=== PATIENT | female | born 1955 | race Caucasian/White ===

== ENCOUNTER 2017-01-03 12:31 | Emergency (ER) | payer BC ==
--- NOTE | 2017-01-03 14:48 | UC ---
Laceration HPI - HPI Summary HPI Summary: This is a 61 yo female with h/o BCA who presented after sustaining laceration to her forehead ~3 hrs ago. She was closing the trunk of her car and did not move her head. She didn't fall or LOC. No STONER or vision change. No n/v. - History Of Current Complaint Chief Complaint: UCLaceration Stated Complaint: HEAD LAC - Allergies/Home Medications Allergies/Adverse Reactions: Allergies Allergy/AdvReac Type Severity Reaction Status Date / Time Bacitracin [From Neosporin] Allergy Unknown Rash Verified 01/03/17 13:03 Neomycin [From Neosporin] Allergy Unknown Rash Verified 01/03/17 13:03 Polymyxin B [From Neosporin] Allergy Unknown Rash Verified 01/03/17 13:03 brazil nuts Allergy Itching Uncoded 01/03/17 13:03 PMH/Surg Hx/FS Hx/Imm Hx Previously Healthy: No - h/o BCA - Surgical History Surgical History: Yes Surgery Procedure, Year, and Place: left breast mastectomy 2011 - Family History Known Family History: Positive: None - Social History Alcohol Use: Occasionally Substance Use Type: None Smoking Status (MU): Never Smoked Tobacco Review of Systems Constitutional: Negative Skin: Other - laceration Eyes: Negative ENT: Negative Respiratory: Negative Cardiovascular: Negative Gastrointestinal: Negative Genitourinary: Negative Motor: Negative Neurovascular: Negative Musculoskeletal: Negative Neurological: Negative Psychological: Negative All Other Systems Reviewed And Are Negative: Yes Physical Exam Triage Information Reviewed: Yes Appearance: Well-Appearing Vital Signs: Initial Vital Signs Temp 98.3 F 01/03/17 12:58 Pulse 77 01/03/17 12:58 Resp 16 01/03/17 12:58 BP 100/51 01/03/17 12:58 Pulse Ox 98 01/03/17 12:58 Vital Signs Reviewed: Yes ENT: Positive: Normal ENT inspection Neck: Positive: Supple, Nontender Respiratory: Positive: Chest non-tender, Lungs clear. Negative: Crackles, Rhonchi, Wheezing Cardiovascular: Positive: RRR Skin: Positive: Other - horizontal laceration of the mid forehead. Measures ~ 1cm in length, inferior flap that is well adhered. Bleeding controlled Laceration Repair - Laceration Repair 1 Description: Linear : No Repair Necessary - steristrips placed Laceration Course/Dx - Course/Dx Course Of Treatment: This is a 61 yo female who sustained a laceration to her forehead. No LOC or concussive symptoms. Simple closure with steristrips. Recommend basic wound care. Leave steristrips in place until they fall on their on. - Differential Dx - Laceration/Wound Differental Diagnoses: Hematoma, Laceration Provider Diagnoses: 1. Laceration of forehead - closure with steristrips Discharge - Discharge Plan Condition: Stable Disposition: HOME Patient Education Materials: Laceration (ED) Referrals: Poncho Torres MD [Primary Care Provider] - If Needed Additional Instructions: Instructions: 1. Keep wound clean and dry 2. You can shower but do not submerge your head 3. Let steristrips fall off on their own
[2017-01-03 15:14] VITALS: BP 112/56
== END 2017-01-03 15:00 | disposition home or self-care (01) ==
LOC: UCEAST 12:31
DX: S01.81XA Laceration without foreign body of other part of head, initial encounter (principal); W20.8XXA Other cause of strike by thrown, projected or falling object, initial encounter; Y93.9 Activity, unspecified; Y92.9 Unspecified place or not applicable; Y99.9 Unspecified external cause status; Z91.018 Allergy to other foods; Z85.3 Personal history of malignant neoplasm of breast; Z88.3 Allergy status to other anti-infective agents; Z90.12 Acquired absence of left breast and nipple
CPT/HCPCS: 12001; 99211; G0463

== ENCOUNTER 2018-03-21 15:25 | Emergency (ER) | payer BC ==
--- OUTSIDE RECORDS SUMMARY | 2018-03-21 15:56 | XMS REPORT ---
:1955 External Reference #:[id number] Author Organization [facility] Address [address] [place] [address] Phone [phone] Care Team Providers Name Role Phone HCP given Primary Care Physician Unavailable Payers Type Date Identification Numbers Payment Provider Subscriber Health Maintenance Policy Number: Jose Calvo [facility] Organization (O) [id number] PayID: [id number] [address] [place] [address] Problems Date Description Provider Status Onset: 05/03/2003 Palpitations Poncho Torres M.D. Active Onset: 03/17/2004 Allergic rhinitis Nurse's Schedule Active Onset: 03/17/2004 Allergic rhinitis due to pollen Nurse's Schedule Active Onset: 03/17/2004 Allergic rhinitis due to animals Nurse's Schedule Active Onset: 11/21/2010 Anxiety state Jaylyn Altamirano MD Active Onset: 08/20/2011 Carcinoma in situ of breast Poncho Torres M.D. Active Onset: 07/03/2012 Personal history of primary malignant Jaylyn Altamirano MD Active neoplasm of breast Onset: 09/10/2012 Hypercalcemia Jaylyn Altamirano MD Active Onset: 12/23/2014 Insomnia Jaylyn Altamirano MD Active Onset: 12/23/2014 Disorder of thyroid gland Jaylyn Altamirano MD Active Onset: 12/23/2014 Thrombocytopenic disorder Jaylyn Altamirano MD Active Onset: 10/01/2015 Parasomnia, unspecified Poncho Torres M.D. Active Family History Date Family Member(s) Problem(s) Comments Father High Blood Pressure age 80 of pneumonia and newly dx lung cancer Mother Emotional Problems Mother High Blood Pressure Mother Mental Illness First Daughter Kathy First Daughter 1991 Second Daughter Glenys Second Daughter 1992 Third Daughter Oneyda Third Daughter 1997 Number of Siblings Siblings: 1 brother and 4 sisters First Brother Cancer Thyroid niece w/same age 30 First Sister Breast Cancer DCIS; Diagnosed in her late 40s; also Fallopian tube tumor Second Sister Emotional Problems anxiety Second Sister Mental Illness Third Sister Allergic Rhinitis Third Sister Asthma Onset: (age 53 Third Sister Colon Cancer metastatic; found on Years) screening. 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 Cigarette Use Does Not Smoke Cigarettes Cigarette Use Denies Cigarette Use ETOH Use Rare Alcohol Use Recreational Drug Use Denies Drug Use Smoking Patient has never smoked Daily Caffeine Drinks On Average 3-4 Caffeinated Beverages A Month Sun Exposure Moderate amount of sun exposure. Uses sunscreen Seat Belt/Car Seat Always uses a seat belt Currently Active The patient is currently sexually active Contraceptive Methods Past methods of control used include condoms Age 1st [place] First intercourse was at age 23 # Partners in a Lifetime The patient has had 3 sexual partners Allergies, Adverse Reactions, Alerts Date Description Reaction Status Severity Comments 02/04/2003 Neosporin active topical Medications Medication Date Status Form Strength Qnty SIG Indications Ordering Provider Alprazolam Active Tablets 0.5mg 10tabs 0.5 - 1 F41.9 Silcoff, 018 tab by Poncho, mouth M.D. three times a day as needed for panic attacks; may take a dose 30-60 min prior to MRI. Proventil HFA Active Aerosol 108(90Base) 1units every 6 B34.0 Silcoff, 018 mcg/Act hours as Poncho, needed M.D. 493.10 Benzonatate 07/20/2017 Active Capsules 100mg 30caps 1-2 capsules R05 Silcoff, three times a Poncho, day as needed, M.D. for nonproductive cough Buspirone HCL 11/18/2015 Active Tablets 7.5mg 180tabs take 1 tablet F41. Silcoff, by mouth two 9 Poncho, to three times M.D. a day for anxiety CBD 02/13/2015 Active Liq 1-2 gtt q d Unknown Calcium 10/04/2014 Active Tablets 600/80 1 qd Unknown W/Vitamin D 0 Tumeric 10/04/2014 Active 1 qd Unknown Vitamin D 10/04/2014 Active Tablets 2000U 1 qd Unknown Anastrozole 07/08/2014 Active Tablets 1mg to use through Unknown 05/[address] Wu Fluticasone 04/09/2014 Active Suspension 50mcg/ 1units 2 sprays into J30. Silcoff, Propionate Act each nostril 9 Poncho, every day as M.D. needed for nasal congestion/all ergies Advil 07/22/2012 Active Tablets 200mg prn Unknown Probiotic 07/02/2012 Active Capsules otc using 1 po Unknown daily Vitamin C 07/02/2012 Active Capsules 500mg OTC 1 po daily Unknown Multivitamins 07/02/2012 Active Tablets otc 1 po qd Unknown Fexofenadine 04/21/2012 Active Tablets 180mg 90tabs 1 by mouth 477. LIBRADO Altamirano every day as 9 Jaylyn VENEGAS needed for allergies Sulfacetamide 12/17/2016 - Hx Solution 10% 15ml 1-2 drops to H00. Silcoff, Sodium 12/24/2016 right eye 011 Poncho, every 3 hours M.D. while awake for up to 5-7 days; Sulfacetamide 07/07/2016 - Hx Solution 10% 10ml 1-2 drops each H11. Cira Sodium 07/14/2016 eye 4 times a 821 A. day 5-7 days Demarcus Rob PT For Low Back 06/19/2016 - Hx please M54. Brian, Pain 12/04/2016 evaluate and 5 erica Isaac M.D. modalities as needed, instruct in hep Buspirone HCL 10/01/2015 - Hx Tablets 5mg 90tabs 1 by mouth F41. Silcoff, 11/18/2015 twice a day 9 Poncho, for anxiety; M.D. increase to 1.5 pills 2x/day after 2wks Clonazepam 10/01/2015 - Hx Tablets 1mg 30tabs 1 by mouth G47. Skyeff, 07/16/2017 every night as 00 Poncho needed for M.D. sleep; do not take alprazolam while using this G47.50 Trazodone HCL 12/23/2014 - Hx Tablets 50mg 90tabs take 1/2 to 1 G47.00 Adarsh, 11/17/2015 tablet by Jaylyn VENEGAS mouth once daily 30 minutes preexpected bedtime as needed insomnia. give 8 hours for sleep Citalopram 12/15/2014 - Hx Tablets 20mg 90tabs 1 tab by mouth 300.00 Adarsh Hydrobromide 12/23/2014 every day Jaylyn VENEGAS Fit For Work 12/15/2014 - Hx free from Adarsh, 02/13/2015 communicable Jaylyn VENEGAS disease as per exam 12/15/14 Valacyclovir HCL 12/04/2013 - Hx Tablets 1gm 21tabs 1 tid for 7 053.9 Sopchak, 03/17/2014 days for ranjith Boss.O. Physical Therapy 04/23/2013 - Hx help benigno and Adarsh, For RT Sided 11/12/2013 treat. 2-3 Jaylyn VENEGAS Hip/Low Back xweek. if not Pain improving have her reseen for imaging. thanks. Flovent HFA 02/28/2013 - Hx Aerosol 110mcg 2units 2 puffs twice 493.90 Adarsh, 07/16/2017 /Act a day for Jaylyn VENEGAS lungs Skelaxin 11/27/2012 - Hx Tablets 800mg 90tabs 1 po tid prn 719.45 Adarsh, 11/12/2013 for your Jaylyn VENEGAS muscle spasm like pain. Flexeril 11/27/2012 - Hx Tablets 10mg 90tabs 1/2 to one tab 719.45 Adarsh, 11/12/2013 po in hs Jaylyn VENEGAS muscle spasm type pain. caution re sedation. to use instead of the skelaxin at night Tramadol HCL 11/27/2012 - Hx Tablets 50mg 120tabs 1 to 2 tab po 719.45 Adarsh, 11/12/2013 q 6h prn Jaylyn VENEGAS severe pain. Massage Therapy 07/03/2012 - Hx for neck pain 719.41 Adarsh, 09/21/2012 once a week Jaylyn VENEGAS for 12 weeks Tamoxifen 06/28/2012 - Hx Tablets 20mg 1 tablet po Unknown Citrate 07/24/2014 qhs Optivar 04/21/2012 - Hx Solution 0.05% 6ml 1 drop twice a 372.14 Adarsh , 12/04/2016 day as needed Jaylyn VENEGAS to affected eye(s); doses should be spaced by at least 6 hours Fluticasone 04/21/2012 - Hx Basin 50mcg/ 54gm 2 sprays each 477.9 Adarsh, Propionate 04/09/2014 Basin nostril once a Jaylyn VENEGAS day Cephalexin 12/06/2011 - Hx Tablets 500mg 1 tab po qid 682.8 Adarsh, 12/20/2011 until december Jaylyn VENEGAS 5th. Cephalexin 12/04/2011 - Hx Tablets 500mg 20tabs 1 tab po bid x 682.8 Adarsh, 12/06/2011 10 days to use Jaylyn VENEGAS as needed. Fluconazole 12/04/2011 - Hx Tablets 150mg 1tabs 1 tab x 1 for 682.8 Adarsh, 04/18/2012 your possible Jaylyn VENEGAS yeast infection Hydrocodone/Acet 10/19/2011 - Hx Tablets 5-500m as directed Unknown aminophen 12/04/2011 g Ibuprofen 10/19/2011 - Hx Tablets 200mg otc taking 2 tab Unknown 12/04/2011 to 4 tab with a snack for your pain. Skelaxin 10/08/2011 - Hx Tablets 800mg 60tabs 1 po tid prn Adarsh, 12/04/2011 for your Jaylyn VENEGAS muscle spasm like pain. Fluoxetine HCL 08/23/2011 - Hx Capsules 20mg 90caps 1 po qam. 300.00 Adarsh, 04/17/2012 bcall if Jaylyn VENEGAS intolerable side effects. can use w/ the alprazolam Alprazolam 08/20/2011 - Hx Tablets 0.5mg 60tabs 0.5 - 1 tab by F41.9 Anetak, 07/16/2017 mouth three Gera, times a day as D.O. needed panic attacks. Physical Therapy 07/02/2011 - Hx for rt Adarsh, 04/18/2012 shoulder pain Jaylyn VENEGAS 2-3x/week. up to 6 weeks Physical Therapy 05/17/2011 - Hx 6Weeks for left 726.19 Adarsh, 06/04/2011 shoudle pain Jaylyn VENEGAS and loss of motion. probable rcs. 2- 3x/week Physical Therpay 05/17/2011 - Hx 12Weeks for lt 726.19 Adarsh, 11/12/2013 shoulder pain Jaylyn VENEGAS 2-3x/week. Flovent HFA 04/30/2011 - Hx Aerosol 110mcg 2units 2 puffs bid 493.90 Silcoff, 12/04/2011 /Act for lungs Demarcus Isaac Loratadine 02/27/2011 - Hx Tablets 10mg 90tabs one tba po 477.9 Adarsh, Allergy Relief 04/21/2012 Dispers daily ervin Jaylyn VENEGAS allergy season Fluticasone 02/27/2011 - Hx Basin 50mcg/ 1units 2 sprays each 477.9 Adarsh, Propionate 12/04/2011 Basin nostril once A Jaylyn VEENGAS day. rinse mouth post. Benadryl 02/27/2011 - Hx Capsules 25mg 30caps 1 Tab PO In hs Adarsh, 12/04/2011 For Refractory Jaylyn VENEGAS Allergy Symptoms Bupropion HCL ER 11/21/2010 - Hx Tablets ER 150mg 60tabs add one tab po 300.00 Adarsh, 01/25/2011 12HR in am to your Jaylyn VENEGAS celexa. if not helping in 2 weeks let me know and can double dose Levofloxacin 11/21/2010 - Hx Solution 0.5% 10cc 1-2 drops each 372.00 Adarsh, 12/04/2011 eye every Jaylyn VENEGAS 4hours while awake until 24 hours after 100% resolved or up to 7 days Ciprofloxacin 11/21/2010 - Hx Solution 0.3% 10cc 1-2 drops in 372.00 Adarsh, HCL 11/28/2010 affected eye q Jaylyn VENEGAS 2h first day while awake and then q4h while awake x 24 hours post resolution of symptoms max 7 d Prednisone 09/18/2010 - Hx Tablets 20mg 10tabs One Tablet 784.49 Silcofreda, 01/24/2011 Twice Daily Poncho For Five Days Demarcus Benzonatate 09/18/2010 - Hx Capsules 200mg 30caps 1 po tid, prn 466.0 Silcoff, 12/04/2011 Demarcus Isaac Physical Therapy 07/20/2010 - Hx 6Weeks for rt hip 719.45 Adarsh, 04/20/2012 pain.. help Jaylyn VENEGAS evaluate and treat. 2-3 x/ wk. Proventil HFA 02/09/2010 - Hx Aerosol 108(90 1units use one to 2 477.9 Adarsh, 07/16/2017 Base) inhalation as Jaylyn VENEGAS mcg/ac needed wheeze. if need to use > 2x/week or in middle of nite. see . 493.10 Citalopram 12/20/2009 - Hx Tablets 20mg 90tabs will try 2 300.00 Adarsh Hydrobromide 01/24/2011 dose qd as Jaylyn VENEGAS ful dose causing sexual s/e Melony Is Free Of 12/20/2009 - Hx continue V74.1 Adarsh Communicable 04/20/2012 working. Jaylyn VENEGAS Disease And Is Fit To Ibuprofen 06/02/2009 - Hx Tablets 200mg 100tabs taking 2 tab 719.41 Adarsh, 09/26/2009 to 4 tab with Jaylyn VENEGAS a snack for your pain. can use with 1 grm tylenol q 6h.max is 2400mg/d PT For Left 05/30/2009 - Hx evaluate and 719.41 Silcoff, Shoulder Pain 04/20/2012 Poncho maldonado modalities M.D. prn, instruct in hep PT For Chronic 01/28/2009 - Hx please 719.45 Silcoff, Right Hip Pain 07/04/2009 evaluate and erica Isaac M.D. instruct in hep Bactroban 12/13/2008 - Hx Ointment 2% 22gm apply to 709.9 Brian, 12/27/2008 affected area kendall Isaac abdomen bid M.DKatie until clear In Good General 12/10/2008 - Hx Is free of Adarsh [facility] 04/20/2012 commicable Jaylyn VENEGAS disease In Good Feneral 12/09/2008 - Hx and free of [facility] 12/10/2008 communicable Jaylyn VENEGAS disease. Sodium 08/31/2008 - Hx Solution 10% 10cc 1-2 gtts ou 372.00 Jovani Sulfacetamide 09/05/2008 q3h while Radha VENEGAS awake for 5 days Delfina 07/01/2008 - Hx Tablets 180mg 90tabs 1 tablet daily 477.9 Silcoff, 04/20/2012 Demarcus Isaac Physical Therapy 07/01/2008 - Hx 6Weeks for neck pain 723.1 Adarsh, 04/20/2012 2to 3x/week Jaylyn VENEGAS Massage Therapy 07/01/2008 - Hx 3Mo once a week as 723.1 Adarsh 04/20/2012 a mode for Jaylyn VENEGAS pain reduction Carpal Tunnel 07/01/2008 - Hx x 1 pr. wear 782.0 Adarsh, Splint 04/20/2012 at nite and Jaylyn VENEGAS see if reduce your hand tingling Physical Therapy 04/08/2008 - Hx 6Weeks please help 719.46 Adarsh, 07/04/2009 evaluate her Jaylyn VENEGAS lt knee pain 2-3x week Massage Therapy 04/08/2008 - Hx 3Mo once A week as 723.1 Adarsh, 04/20/2012 A mode for Jaylyn VENEGAS pain reduction Amoxicillin 02/27/2008 - Hx Tablets 500mg 30tabs 1 po tid for 465.9 Silcoff, 03/12/2008 10 days Demarcus Isaac PT For Right Hip 08/06/2007 - Hx evaluate and 726.5 Silcoff, Trochanteric 02/27/2008 treatPoncho Bursitis willian Tracy prn, instruct in hep Prednisone 02/11/2007 - Hx Tablets 20mg 10tabs One Tablet 477.9 Howson, 02/16/2007 Twice Daily Radha VENEGAS For Five Days Fexofenadine 07/15/2006 - Hx Tablets 180mg 90tabs 1 po qd prn 477.9 Silcoff, 03/18/2008 for allergies Demarcus Isaac Augmentin 01/18/2006 - Hx Tablets 875mg 20tabs 1 po bid 682.2 Silcoff, 01/28/2006 Demarcus Isaac 998.59 Biaxin 09/17/2005 - Hx Tablets 500mg 20tabs 1 PO bid For 486 Silcoff, 09/27/2005 10 Days Demarcus Isaac Zyrtec 07/16/2005 - Hx Tablets 10mg 90tabs 1 tablet in Breiman, 07/15/2006 the evening Kerline, N.P. Amoxicillin 05/17/2005 - Hx Capsules 500mg 30caps 1 tablet Breiman, 05/22/2005 every 8 Kerline, hours for N.P. 10 days Erythromycin 05/15/2005 - Hx apply / 374.8 Breiman, 05/22/2005 inch of 9 Kerline, ointment in N.P. the lower lid of the affected eye 2 times A day for 5 days Flonase 12/20/2004 - Hx Basin 50mcg/Basin 1units 2 sprays 477.9 Adarsh, 02/27/2011 each nostril Jaylyn VENEGAS once A day. rinse mouth post. Clarinex 10 MG 08/22/2004 - Hx Tablets 10mg 30tabs 1 po qd Breiman, 07/16/2005 Kerline, N.P. Eye Exam 03/31/2004 - Hx we recommend Breiman, 02/27/2008 an eye exam Kerline, at this N.P. time for further evaluation of visual changes Erythromycin 05/11/2003 - Hx Ointment Opthalamic apply 06/20 Breiman, 10/21/2003 Oint inch to Kerline, affected eye N.P. twice a day for 5 days Taco-Tab 05/11/2003 - Hx Tablets 333mg take 1 Breiman, 10/21/2003 tablet 3 Kerline, times a day N.P. with food for 10 days Clarinex 03/26/2003 - Hx Tablets 5mg 90tabs 1 qd for Breiman, 10/31/2004 allergies Kerline, N.P. Flovent 03/26/2003 - Hx Aerosol 110mcg/Inhal 3units 2 puffs bid 493.9 Adarsh, 04/30/2011 ation for lungs 0 Jaylyn VENEGAS Albuterol Mdi 03/26/2003 - Hx Aerosol 90mcg/Dose 1units 2 puffs q 4 493.9 Breiman, 07/25/2010 hrs prn for 0 Kerline, SOB N.P. Xyzal - Hx Tablets 5mg 1 po qd 477.9 Unknown 07/01/2008 Glucosamine/Cho - Hx Capsules Unknown ndroitin 12/04/2011 Medications Administered in Office Medication Date Status Form Strength Qnty SIG Indications Ordering Provider TB Intradermal Administered Injection Valeri Test 018 [place], P.A. TB Intradermal Administered Injection Hang Test 017 Gera, D.O. TB Intradermal Administered Injection Nurse's Test 017 Schedule TB Intradermal Administered Injection Nurse's Test 015 Schedule TB Intradermal Administered Injection Nurse's Test 014 Schedule TB Intradermal Administered Injection Nurse's Test 013 Schedule TB Intradermal Administered Injection Nurse's Test 011 Schedule TB Intradermal Administered Injection Adarsh, Test 010 Jaylyn VENEGAS TB Intradermal Administered Injection Nurse's Test 009 Schedule TB Intradermal Administered Injection Nurse's Test 008 Schedule TB Intradermal Administered Injection Silcoff, Test 007 Demarcus Isaac TB Intradermal Administered Injection Silcoff, Test 006 Demarcus Isaac TB Intradermal Administered Injection Nurse's Test 006 Schedule TB Intradermal Administered Injection Silcoff, Test 005 Demarcus Isaac TB Intradermal Administered Injection Nurse's Test 005 Schedule TB Intradermal Administered Injection Silcoff, Test 004 Demarcus Isaac TB Intradermal Administered Injection Nurse's Test 004 Schedule TB Intradermal Administered Injection Silcoff, Test 003 Demarcus Isaac Immunizations CPT Code Status Date Vaccine Lot # [id number] Given 03/07/2018 Influenza,Unspecified 44661 Given 12/05/2016 Td Immunization [id number] 50542 Given 06/19/2016 Influenza Virus Vaccine, Quadrivalent, Split, [id number] Preservative Free 97158 Given 02/14/2015 Influenza Virus Vaccine, Quadrivalent, Split, [id number] Preservative Free 71156 Given 02/28/2013 Flu, Split Virus 3Yrs [id number] 41835 Given 04/21/2012 Flu, Split Virus 3Yrs [id number] 22970 Given 03/30/2011 Flu, Split Virus 3Yrs [id number] 49110 Given 04/12/2010 Flu, Split Virus 3Yrs 56780 Given 05/26/2009 Flu, Split Virus 3Yrs [id number] 79101 Given 03/18/2008 Flu, Split Virus 3Yrs 22354 Given 04/11/2007 Flu, Split Virus 3Yrs [id number] 40509 Given 03/12/2007 Adacel or Boostrix, TDaP [id number] 12334 Given 05/17/2006 Flu, Split Virus 3Yrs [id number] 04926 Given 04/19/2005 Flu, Split Virus 3Yrs 96562 Given 03/17/2004 Flu, Split Virus 3Yrs 93153 Given 04/03/2003 Flu, Split Virus 3Yrs 63019 Given 08/18/1999 Td Immunization Vital Signs Date Vital Result Comment 03/19/2018 BP Systolic 94 mmHg BP Diastolic 60 mmHg Weight 142.00 lb 11/29/2017 BP Systolic 90 mmHg BP Diastolic 60 mmHg Height 65 inches 5'5" Weight 136.00 lb BMI (Body Mass Index) 22.6 kg/m2 11/14/2017 BP Systolic 94 mmHg BP Diastolic 60 mmHg Weight 135.00 lb 10/14/2017 BP Systolic 90 mmHg BP Diastolic 60 mmHg Heart Rate 88 /min O2 % BldC Oximetry 98 % Body Temperature 97.8 F Weight 133.00 lb 07/20/2017 BP Systolic 98 mmHg BP Diastolic 68 mmHg Heart Rate 70 /min O2 % BldC Oximetry 95 % Body Temperature 98.1 F 07/17/2017 BP Systolic 92 mmHg BP Diastolic 60 mmHg Body Temperature 98.6 F Height 65.25 inches 5'5.25" Weight 130.00 lb BMI (Body Mass Index) 21.5 kg/m2 12/17/2016 BP Systolic 96 mmHg BP Diastolic 64 mmHg 12/05/2016 BP Systolic 98 mmHg BP Diastolic 60 mmHg Weight 140.00 lb 08/31/2016 BP Systolic 108 mmHg BP Diastolic 64 mmHg Body Temperature 97.7 F 07/07/2016 BP Systolic 118 mmHg BP Diastolic 70 mmHg 06/19/2016 BP Systolic 110 mmHg BP Diastolic 75 mmHg Height 65.25 inches 5'5.25" Weight 148.00 lb BMI (Body Mass Index) 24.4 kg/m2 11/18/2015 BP Systolic 118 mmHg BP Diastolic 62 mmHg 10/01/2015 BP Systolic 118 mmHg BP Diastolic 70 mmHg Height 65.25 inches 5'5.25" Weight 144.00 lb BMI (Body Mass Index) 23.8 kg/m2 02/14/2015 BP Systolic 116 mmHg BP Diastolic 68 mmHg Weight 148.00 lb 12/23/2014 BP Systolic 116 mmHg BP Diastolic 84 mmHg 12/15/2014 BP Systolic 102 mmHg BP Diastolic 65 mmHg Height 65.25 inches 5'5.25" Weight 147.00 lb BMI (Body Mass Index) 24.3 kg/m2 10/05/2014 BP Systolic 98 mmHg BP Diastolic 60 mmHg Height 65 inches 5'5" Weight 150.00 lb BMI (Body Mass Index) 25.0 kg/m2 07/24/2014 BP Systolic 112 mmHg BP Diastolic 68 mmHg Weight 153.00 lb 03/18/2014 BP Systolic 114 mmHg BP Diastolic 82 mmHg Weight 155.00 lb shoes on 12/04/2013 BP Systolic 110 mmHg BP Diastolic 68 mmHg Body Temperature 98.2 F Weight 147.00 lb 11/12/2013 BP Systolic 90 mmHg BP Diastolic 62 mmHg Height 65 inches 5'5" Weight 152.00 lb BMI (Body Mass Index) 25.3 kg/m2 05/08/2013 BP Systolic 104 mmHg BP Diastolic 72 mmHg 04/28/2013 BP Systolic 98 mmHg BP Diastolic 62 mmHg Height 65 inches 5'5" Weight 152.00 lb BMI (Body Mass Index) 25.3 kg/m2 04/23/2013 BP Systolic 100 mmHg BP Diastolic 68 mmHg Body Temperature 98.1 F Weight 141.00 lb 02/28/2013 BP Systolic 108 mmHg BP Diastolic 63 mmHg Heart Rate 76 /min O2 % BldC Oximetry 97 % Body Temperature 98.2 F Weight 153.00 lb 11/27/2012 BP Systolic 98 mmHg BP Diastolic 58 mmHg Height 65.25 inches 5'5.25" Weight 152.00 lb BMI (Body Mass Index) 25.1 kg/m2 10/16/2012 BP Systolic 100 mmHg BP Diastolic 64 mmHg Body Temperature 97.9 F Weight 149.00 lb 09/10/2012 BP Systolic 88 mmHg BP Diastolic 50 mmHg Body Temperature 97.7 F 09/02/2012 BP Systolic 90 mmHg BP Diastolic 60 mmHg Body Temperature 97.9 F 08/27/2012 BP Systolic 100 mmHg BP Diastolic 62 mmHg Height 65 inches 5'5" Weight 146.00 lb BMI (Body Mass Index) 24.3 kg/m2 07/23/2012 BP Systolic 100 mmHg BP Diastolic 60 mmHg Weight 145.00 lb 07/03/2012 BP Systolic 104 mmHg was down to 136 pounds. BP Diastolic 62 mmHg was down to 136 pounds. Body Temperature 97.7 F Height 65 inches 5'5" Weight 146.00 lb BMI (Body Mass Index) 24.3 kg/m2 04/21/2012 BP Systolic 96 mmHg BP Diastolic 66 mmHg Body Temperature 98.3 F Weight 142.00 lb Last Menstrual Period 0 12/26/2011 BP Systolic 100 mmHg BP Diastolic 50 mmHg Heart Rate 75 /min 12/06/2011 BP Systolic 90 mmHg BP Diastolic 62 mmHg Weight 140.00 lb Last Menstrual Period 0 12/04/2011 BP Systolic 98 mmHg BP Diastolic 60 mmHg Body Temperature 98.1 F Weight 140.00 lb 11/01/2011 BP Systolic 90 mmHg BP Diastolic 56 mmHg Body Temperature 98.1 F Weight 137.00 lb w/shoes 09/06/2011 BP Systolic 100 mmHg BP Diastolic 68 mmHg Weight 138.00 lb Last Menstrual Period 0 08/23/2011 BP Systolic 136 mmHg BP Diastolic 80 mmHg Height 65.25 inches 5'5.25" Weight 141.00 lb BMI (Body Mass Index) 23.3 kg/m2 Last Menstrual Period 0 08/20/2011 BP Systolic 120 mmHg BP Diastolic 64 mmHg 05/17/2011 BP Systolic 100 mmHg BP Diastolic 60 mmHg Height 65.25 inches 5'5.25" Weight 142.00 lb BMI (Body Mass Index) 23.4 kg/m2 01/25/2011 BP Systolic 112 mmHg BP Diastolic 70 mmHg Weight 147.00 lb 11/21/2010 BP Systolic 104 mmHg BP Diastolic 66 mmHg Body Temperature 98.1 F Weight 153.00 lb Last Menstrual Period 0 11/02/2010 BP Systolic 103 mmHg BP Diastolic 52 mmHg Heart Rate 69 /min Height 65.25 inches 5'5.25" Weight 151.00 lb BMI (Body Mass Index) 24.9 kg/m2 Last Menstrual Period 0 09/18/2010 BP Systolic 105 mmHg BP Diastolic 61 mmHg Heart Rate 64 /min Body Temperature 98.1 F Weight 151.00 lb Last Menstrual Period 0 07/20/2010 BP Systolic 98 mmHg BP Diastolic 64 mmHg Height 65.50 inches 5'5.50" Weight 153.00 lb BMI (Body Mass Index) 25.1 kg/m2 02/09/2010 BP Systolic 102 mmHg BP Diastolic 66 mmHg Weight 148.00 lb 12/20/2009 BP Systolic 126 mmHg BP Diastolic 70 mmHg Height 65.25 inches 5'5.25" Weight 149.50 lb BMI (Body Mass Index) 24.7 kg/m2 11/23/2009 BP Systolic 118 mmHg BP Diastolic 55 mmHg Heart Rate 64 /min Weight 150.00 lb Last Menstrual Period 0 09/26/2009 BP Systolic 100 mmHg BP Diastolic 70 mmHg Weight 150.00 lb Last Menstrual Period 0 07/14/2009 BP Systolic 102 mmHg BP Diastolic 60 mmHg Height 66 inches 5'6" Weight 145.50 lb BMI (Body Mass Index) 23.5 kg/m2 Last Menstrual Period [id number] 06/02/2009 BP Systolic 100 mmHg BP Diastolic 66 mmHg Weight 145.00 lb Last Menstrual Period 0 01/28/2009 BP Systolic 100 mmHg BP Diastolic 70 mmHg Weight 155.00 lb 01/28/2009 BP Systolic 100 mmHg BP Diastolic 70 mmHg Weight 155.00 lb 12/13/2008 BP Systolic 112 mmHg BP Diastolic 70 mmHg Body Temperature 98.3 F 10/07/2008 BP Systolic 98 mmHg BP Diastolic 64 mmHg Weight 167.00 lb 08/31/2008 BP Systolic 96 mmHg BP Diastolic 64 mmHg Body Temperature 98.1 F Weight 163.00 lb 07/01/2008 BP Systolic 92 mmHg BP Diastolic 62 mmHg Weight 165.00 lb 04/27/2008 BP Systolic 98 mmHg BP Diastolic 60 mmHg Height 65.5 inches 5'5.50" Weight 161.00 lb BMI (Body Mass Index) 26.4 kg/m2 04/08/2008 BP Systolic 94 mmHg BP Diastolic 60 mmHg Height 65.5 inches 5'5.50" Weight 164.00 lb BMI (Body Mass Index) 26.9 kg/m2 03/18/2008 BP Systolic 98 mmHg BP Diastolic 64 mmHg Height 65.5 inches 5'5.50" Weight 165.00 lb BMI (Body Mass Index) 27.0 kg/m2 Last Menstrual Period [id number] 02/27/2008 BP Systolic 100 mmHg BP Diastolic 60 mmHg Body Temperature 98.0 F Height 65.5 inches 5'5.50" Weight 165.00 lb BMI (Body Mass Index) 27.0 kg/m2 Last Menstrual Period 0 11/26/2007 BP Systolic 104 mmHg BP Diastolic 60 mmHg Height 65.5 inches 5'5.50" Weight 160.00 lb BMI (Body Mass Index) 26.2 kg/m2 08/06/2007 BP Systolic 100 mmHg BP Diastolic 54 mmHg Height 65.5 inches 5'5.50" Weight 158.50 lb BMI (Body Mass Index) 26.0 kg/m2 03/12/2007 BP Systolic 114 mmHg BP Diastolic 70 mmHg Height 65.5 inches 5'5.50" Weight 159.00 lb BMI (Body Mass Index) 26.1 kg/m2 Last Menstrual Period [id number] 02/11/2007 BP Systolic 90 mmHg BP Diastolic 60 mmHg Body Temperature 98.1 F Height 65.5 inches 5'5.50" Weight 156.00 lb BMI (Body Mass Index) 25.6 kg/m2 Last Menstrual Period 0 01/13/2007 BP Systolic 120 mmHg BP Diastolic 62 mmHg Height 65.5 inches 5'5.50" Weight 160.00 lb BMI (Body Mass Index) 26.2 kg/m2 08/05/2006 BP Systolic 100 mmHg BP Diastolic 76 mmHg BP Systolic Recheck 112 mmHg R arm sitting; 110/80 standing BP Diastolic Recheck 68 mmHg R arm sitting; 110/80 standing Heart Rate 76 /min reg Body Temperature 98.0 F Height 65.5 inches 5'5.50" Weight 156.00 lb BMI (Body Mass Index) 25.6 kg/m2 Last Menstrual Period 0 03/07/2006 BP Systolic 98 mmHg BP Diastolic 60 mmHg Height 65.5 inches 5'5.50" Weight 154.00 lb BMI (Body Mass Index) 25.2 kg/m2 01/18/2006 BP Systolic 100 mmHg BP Diastolic 65 mmHg Body Temperature 97.6 F Height 65.5 inches 5'5.50" Weight 154.00 lb BMI (Body Mass Index) 25.2 kg/m2 01/14/2006 BP Systolic 96 mmHg BP Diastolic 60 mmHg Body Temperature 98.0 F Height 65.5 inches 5'5.50" Weight 152.00 lb BMI (Body Mass Index) 24.9 kg/m2 09/17/2005 BP Systolic 106 mmHg BP Diastolic 70 mmHg Heart Rate 76 /min reg Respiratory Rate 12 /min not laboured Body Temperature 97.2 F Height 65.25 inches 5'5.25" Weight 163.00 lb BMI (Body Mass Index) 26.9 kg/m2 05/17/2005 Body Temperature 97.8 F Height 65.25 inches 5'5.25" 05/15/2005 Body Temperature 97.8 F Height 65.25 inches 5'5.25" 04/19/2005 BP Systolic 102 mmHg BP Diastolic 68 mmHg Height 65.25 inches 5'5.25" Weight 165.00 lb BMI (Body Mass Index) 27.2 kg/m2 02/20/2005 BP Systolic 100 mmHg BP Diastolic 70 mmHg Body Temperature 98.1 F Height 65.25 inches 5'5.25" Weight 166.00 lb BMI (Body Mass Index) 27.4 kg/m2 01/11/2005 BP Systolic 126 mmHg BP Diastolic 70 mmHg Height 65.25 inches 5'5.25" Weight 164.00 lb BMI (Body Mass Index) 27.1 kg/m2 10/31/2004 BP Systolic 100 mmHg BP Diastolic 80 mmHg Height 65.25 inches 5'5.25" Weight 160.00 lb BMI (Body Mass Index) 26.4 kg/m2 Last Menstrual Period 0 08/22/2004 BP Systolic 104 mmHg BP Diastolic 70 mmHg Height 65.25 inches 5'5.25" Weight 162.00 lb BMI (Body Mass Index) 26.7 kg/m2 Last Menstrual Period [id number] 03/31/2004 BP Systolic 100 mmHg BP Diastolic 58 mmHg Height 65 inches 5'5" Weight 157.00 lb BMI (Body Mass Index) 26.1 kg/m2 Last Menstrual Period [id number] 10/21/2003 BP Systolic 110 mmHg R Arm BP Diastolic 60 mmHg R Arm Body Temperature 96.0 F PO Weight 153.00 lb 10/15/2003 BP Systolic 102 mmHg BP Diastolic 70 mmHg Weight 154.00 lb 04/16/2003 BP Systolic 100 mmHg BP Diastolic 60 mmHg 03/26/2003 BP Systolic 110 mmHg BP Diastolic 65 mmHg Height 65 inches 5'5" Weight 155.00 lb BMI (Body Mass Index) 25.8 kg/m2 Results Test Date Test Result H/L Range Note Laboratory test 11/29/2017 TSH (Thyroid Stim 2.09 mcIU/mL 0.34-5.60 finding Horm) Lipid Profile 11/29/2017 Triglycerides 129 mg/dL 1 (Trig/Chol/HDL) Cholesterol 210 mg/dL 2 HDL Cholesterol 82.6 mg/dL 3 LDL Cholesterol 102 mg/dL 4 Comp Metabolic Panel 11/29/2017 Sodium 141 mmol/L 135-145 Potassium 4.9 mmol/L 3.5-5.0 Chloride 103 mmol/L 101-111 Co2 Carbon Dioxide 32 mmol/L 22-32 Anion Gap 6 mmol/L 2-11 Glucose 90 mg/dL 70-100 Blood Urea Nitrogen 17 mg/dL 6-24 Creatinine 0.86 mg/dL 0.51-0.95 BUN/Creatinine Ratio 19.8 8-20 Calcium 10.3 mg/dL 8.6-10.3 Total Protein 6.5 g/dL 6.4-8.9 Albumin 4.2 g/dL 3.2-5.2 Globulin 2.3 g/dL 2-4 Albumin/Globulin Ratio 1.8 1-3 Total Bilirubin 0.40 mg/dL 0.2-1.0 Alkaline Phosphatase 95 U/L 34-104 Alt 15 U/L 7-52 Ast 21 U/L 13-39 Egfr Non- 67.5 >60 Egfr 86.9 >60 5 CBC Auto Diff 11/29/2017 White Blood Count 6.2 10^3/uL 3.5-10.8 Red Blood Count 4.52 10^6/uL 4.00-5.40 Hemoglobin 14.6 g/dL 12.0-16.0 Hematocrit 44 % 35-47 Mean Corpuscular Volume 97 fL 80-97 Mean Corpuscular Hemoglobin 32 pg High 27-31 Mean Corpuscular HGB Conc 33 g/dL 31-36 Red Cell Distribution Width 13 % 10.5-15 Platelet Count 164 10^3/uL 150-450 Mean Platelet Volume 9.5 um3 7.4-10.4 Abs Neutrophils 3.4 10^3/uL 1.5-7.7 Abs Lymphocytes 2.1 10^3/uL 1.0-4.8 Abs Monocytes 0.4 10^3/uL 0-0.8 Abs Eosinophils 0.2 10^3/uL 0-0.6 Abs Basophils 0 10^3/uL 0-0.2 Abs Nucleated RBC 0 10^3/uL Granulocyte % 55.2 % 38-83 Lymphocyte % 34.0 % 25-47 Monocyte % 7.2 % High 0-7 Eosinophil % 3.1 % 0-6 Basophil % 0.5 % 0-2 Nucleated Red Blood Cells % 0.1 Laboratory test 09/13/2017 Vitamin D Total 62.3 ng/mL High 20-50 finding 25(Oh) Laboratory test 12/28/2016 Surgical Pathology SEE RESULT BELOW 6, 7 finding CBC Auto Diff 01/26/2016 White Blood Count 5.2 10^3/uL 3.5-10.8 Red Blood Count 4.47 10^6/uL 4.0-5.4 Hemoglobin 14.0 g/dL 12.0-16.0 Hematocrit 42 % 35-47 Mean Corpuscular Volume 95 fL 80-97 Mean Corpuscular Hemoglobin 31 pg 27-31 Mean Corpuscular HGB Conc 33 g/dL 31-36 Red Cell Distribution Width 13 % 10.5-15 Platelet Count 162 10^3/uL 150-450 Mean Platelet Volume 10 um3 7.4-10.4 Abs Neutrophils 2.4 10^3/uL 1.5-7.7 Abs Lymphocytes 2.1 10^3/uL 1.0-4.8 Abs Monocytes 0.4 10^3/uL 0-0.8 Abs Eosinophils 0.2 10^3/uL 0-0.6 Abs Basophils 0 10^3/uL 0-0.2 Abs Nucleated RBC 0 10^3/uL Granulocyte % 46.6 % 38-83 Lymphocyte % 41.2 % 25-47 Monocyte % 7.5 % 1-9 Eosinophil % 3.9 % 0-6 Basophil % 0.8 % 0-2 Nucleated Red Blood Cells % 0.1 Comp Metabolic Panel 01/26/2016 Sodium 138 mmol/L 133-145 Potassium 4.2 mmol/L 3.5-5.0 Chloride 103 mmol/L 101-111 Co2 Carbon Dioxide 30 mmol/L 22-32 Anion Gap 5 mmol/L 2-11 Glucose 122 mg/dL High 70-100 Blood Urea Nitrogen 16 mg/dL 6-24 Creatinine 0.89 mg/dL 0.51-0.95 BUN/Creatinine Ratio 18.0 8-20 Calcium 9.6 mg/dL 8.6-10.3 Total Protein 6.6 g/dL 6.4-8.9 Albumin 3.9 g/dL 3.2-5.2 Globulin 2.7 g/dL 2-4 Albumin/Globulin Ratio 1.4 1-3 Total Bilirubin 0.40 mg/dL 0.2-1.0 Alkaline Phosphatase 90 U/L 34-104 Alt 12 U/L 7-52 Ast 20 U/L 13-39 Egfr Non- 65.1 >60 Egfr 83.8 >60 8 Laboratory test finding 01/26/2016 Vitamin D Total 25(Oh) 59.7 ng/mL High 30-50 Lipid Profile 11/29/2015 Triglycerides 75 mg/dL 9 (Trig/Chol/HDL) Cholesterol 181 mg/dL 10 HDL Cholesterol 73.1 mg/dL 11 LDL Cholesterol 93 mg/dL 12 Quantiferon Gold TB 11/29/2015 M tuberculosis by Quantiferon Negative Negative 13 TB Ag minus Nil Result 0.09 IU/mL TB Mitogen minus Nil Result 13.68 IU/mL TB Nil Result 0.07 IU/mL 14 Laboratory test finding 07/27/2015 Vagina Biopsy See Note 15 Anaerobic Culture W/ GR Stain 07/27/2015 Gram Stain; Anaerobic See Note 16 Specimen Anaerobic Culture See Note 17 Routine Culture W/ Gram Stain 07/27/2015 Gram Stain See Note 18 Aerobic Culture See Note 19 Laboratory test finding 01/04/2015 Vitamin B12 557 pg/mL 193-986 20 Folic Acid 21.9 ng/mL High 3.1-17.5 21 Vitamin B1 (Thiamine),WB 165.2 nmol/L 66.5-200.0 22 CBC Auto Diff 12/16/2014 White Blood Count 4.8 10^3/uL 4.8-10.8 Red Blood Count 4.32 10^6/uL 4.0-5.4 Hemoglobin 13.8 g/dL 12.0-16.0 Hematocrit 42 % 35-47 Mean Corpuscular Volume 97 fL 80-97 Mean Corpuscular Hemoglobin 32 pg High 27-31 Mean Corpuscular HGB Conc 33 g/dL 31-36 Red Cell Distribution Width 13 % 10.5-15 Platelet Count 145 10^3/uL Low 150-450 Mean Platelet Volume 10 um3 7.4-10.4 Abs Neutrophils 2.1 10^3/uL 1.5-7.7 Abs Lymphocytes 2.0 10^3/uL 1.0-4.8 Abs Monocytes 0.5 10^3/uL 0-0.8 Abs Eosinophils 0.2 10^3/uL 0-0.6 Abs Basophils 0 10^3/uL 0-0.2 Abs Nucleated RBC 0.01 10^3/uL Granulocyte % 43.7 % 38-83 Lymphocyte % 41.6 % 25-47 Monocyte % 10.3 % High 1-9 Eosinophil % 3.6 % 0-6 Basophil % 0.8 % 0-2 Nucleated Red Blood Cells % 0.1 Comp Metabolic Panel 12/16/2014 Sodium 138 mmol/L 133-145 Potassium 4.1 mmol/L 3.5-5.0 Chloride 102 mmol/L 101-111 Co2 Carbon Dioxide 31 mmol/L 22-32 Anion Gap 5 mmol/L 2-11 Glucose 86 mg/dL 70-100 Blood Urea Nitrogen 18 mg/dL 6-24 Creatinine 0.80 mg/dL 0.51-0.95 BUN/Creatinine Ratio 22.5 High 8-20 Calcium 9.5 mg/dL 8.6-10.3 Total Protein 6.2 g/dL Low 6.4-8.9 Albumin 4.1 g/dL 3.2-5.2 Globulin 2.1 g/dL 2-4 Albumin/Globulin Ratio 2.0 1-3 Total Bilirubin 0.40 mg/dL 0.2-1.0 Alkaline Phosphatase 90 U/L 34-104 Alt 11 U/L 7-52 Ast 19 U/L 13-39 Egfr Non- 73.9 >60 Egfr 95.1 >60 23 Laboratory test finding 12/16/2014 TSH (Thyroid Stim Horm) 2.23 ?IU/mL 0.34-5.60 Free T4 (Free Thyroxine) 0.95 ng/mL 0.61-1.12 Laboratory test finding 05/21/2014 Follicle Stimulating Hormone 53.1 IU/mL 24 Luteinizing Hormone 27.2 IU/mL 25 Estradiol 25 pg/mL 26 Varicella Zoster 12/04/2013 Varicella Zoster Source abdomen skin swa <SEE 27 Culture NOTE> Varicella Zoster Result Negative Negative 28 Laboratory test finding 11/12/2013 CA 27-29 22.00 U/mL 3.5-38.6 29 CA 125 Antigen 11.3 U/mL 0-35 Comp Metabolic Panel 11/12/2013 Sodium 138 mmol/L 133-145 Potassium 4.2 mmol/L 3.7-5.6 Chloride 102 mmol/L 101-111 Co2 Carbon Dioxide 32 mmol/L 22-32 Anion Gap 4 mmol/L 2-11 Glucose 85 mg/dL 70-100 Blood Urea Nitrogen 14 mg/dL 6-24 Creatinine 0.93 mg/dL 0.51-0.95 BUN/Creatinine Ratio 15.1 8-20 Calcium 10.4 mg/dL High 8.6-10.3 Total Protein 6.6 g/dL 6.4-8.9 Albumin 4.1 g/dL 3.2-5.2 Globulin 2.5 g/dL 2-4 Albumin/Globulin Ratio 1.6 1-3 Total Bilirubin 0.50 mg/dL 0.2-1.0 Alkaline Phosphatase 63 U/L 34-104 Alt 14 U/L 7-52 Ast 24 U/L 13-39 Egfr Non- 62.6 >60 Egfr 80.5 >60 30 Laboratory test finding 11/12/2013 TSH (Thyroid Stimulating 1.85 IU/mL 0.34-5.60 Horm) Free T4 0.90 ng/mL 0.61-1.12 CBC With Manual Diff 11/12/2013 White Blood Count 4.9 10^3/uL 4.8-10.8 Red Blood Count 4.25 10^6/uL 4.0-5.4 Hemoglobin 14.0 g/dL 12.0-16.0 Hematocrit 41 % 35-47 Mean Corpuscular Volume 97 fL 80-97 Mean Corpuscular Hemoglobin 33 pg High 27-31 Mean Corpuscular HGB Conc 34 g/dL 31-36 Red Cell Distribution Width 13 % 10.5-15 Platelet Count 126 10^3/uL Low 150-450 Mean Platelet Volume 11 um3 High 7.4-10.4 Abs Neutrophils 2.6 10^3/uL 1.5-7.7 Abs Lymphocytes 1.8 10^3/uL 1.0-4.8 Abs Monocytes 0.4 10^3/uL 0-0.8 Abs Eosinophils 0.1 10^3/uL 0-0.6 Abs Basophils 0 10^3/uL 0-0.2 Abs Nucleated RBC 0 10^3/uL Neutrophil % 52 % 38-83 Band % 2 % 0-8 Lymphocytes % 37 % 25-47 Monocytes % 5 % 0-13 Eosinophils % 4 % 0-6 RBC Morphology Normal Normal Laboratory test finding 11/12/2013 Erythrocyte Sed Rate 11 mm/Hr 0-30 Vitamin D, 25 Hydroxy 10/26/2013 25-Hydroxy Vitamin D2 <4.0 ng/mL 25-Hydroxy Vitamin D3 56 ng/mL 25-Hydroxy Vitamin D Total 56 ng/mL 31 Laboratory test 04/28/2013 Surgical Pathology RUN DATE: finding <SEE NOTE> Laboratory test 11/28/2012 Erythrocyte Sed Rate 12 mm/Hr 0-30 finding CBC With Manual Diff 11/28/2012 White Blood Count 4.4 10^3/uL Low 4.8- 10.8 Red Blood Count 4.04 10^6/uL 4.0-5.4 Hemoglobin 13.0 g/dL 12.0-16.0 Hematocrit 40 % 35-47 Mean Corpuscular Volume 100 fL High 80-97 Mean Corpuscular Hemoglobin 32 pg High 27-31 Mean Corpuscular HGB Conc 32 g/dL 31-36 Red Cell Distribution Width 13 % 10.5-15 Platelet Count 131 10^3/uL Low 150-450 Mean Platelet Volume 10 um3 7.4-10.4 Abs Neutrophils 2.2 10^3/uL 1.5-7.7 Abs Lymphocytes 1.6 10^3/uL 1.0-4.8 Abs Monocytes 0.4 10^3/uL 0-0.8 Abs Eosinophils 0.2 10^3/uL 0-0.6 Abs Basophils 0 10^3/uL 0-0.2 Abs Nucleated RBC 0.01 10^3/uL Neutrophil % 52 % 38-83 Lymphocytes % 41 % 25-47 Monocytes % 3 % 0-13 Eosinophils % 4 % 0-6 RBC Morphology Normal Normal Laboratory test finding 11/28/2012 TSH (Thyroid Stimulating 2.24 miu/mL 0.34-5.60 Horm) Free T4 0.76 ng/mL 0.61-1.24 Comp Metabolic Panel 11/28/2012 Sodium 137 mmol/L 133-145 Potassium 4.4 mmol/L 3.5-5.0 Chloride 101 mmol/L 101-111 Co2 Carbon Dioxide 32.0 mmol/L 22-32 Anion Gap 4.0 mmol/L 2-11 Glucose 88 mg/dL 70-100 Blood Urea Nitrogen 12 mg/dL 6-24 Creatinine 0.90 mg/dL 0.50-1.40 BUN/Creatinine Ratio 13.3 8-20 Calcium 9.3 mg/dL 8.1-9.9 Total Protein 5.8 g/dL Low 6.2-8.1 Albumin 3.6 g/dL 3.6-5.4 Globulin 2.2 g/dL 2-4 Albumin/Globulin Ratio 1.6 1-3 Total Bilirubin 0.6 mg/dL 0.4-1.5 Alkaline Phosphatase 75 U/L 30-110 Alt 17 U/L 14-54 Ast 25 U/L 12-42 Egfr Non- 65.0 >60 Egfr 83.6 >60 33 Laboratory test finding 11/25/2012 Calcium Ionized 4.41 mg/dL Low 4.65- 5.28 Vitamin D, 25 Hydroxy 11/25/2012 25-Hydroxy Vitamin D2 <4.0 ng/mL 25-Hydroxy Vitamin D3 46 ng/mL 25-Hydroxy Vitamin D Total 46 ng/mL 34 Laboratory test finding 09/10/2012 Calcium,Ionized 5.6 mg/dL 4.5-5.6 35 CBC With Manual Diff 08/27/2012 White Blood Count 3.6 10^3/uL Low 4.8- 10.8 36 Red Blood Count 4.00 10^6/uL 4.0-5.4 36 Hemoglobin 13.2 g/dL 12.0-16.0 36 Hematocrit 39 % 35-47 36 Mean Corpuscular Volume 96 fL 80-97 36 Mean Corpuscular Hemoglobin 33 pg High 27-31 36 Mean Corpuscular HGB Conc 34 g/dL 31-36 36 Red Cell Distribution Width 14 % 10.5-15 36 Platelet Count 134 10^3/uL Low 150-450 36 Mean Platelet Volume 10 um3 7.4-10.4 36 Abs Neutrophils 1.8 10^3/uL 1.5-7.7 36 Abs Lymphocytes 1.2 10^3/uL 1.0-4.8 36 Abs Monocytes 0.4 10^3/uL 0-0.8 36 Abs Eosinophils 0.2 10^3/uL 0-0.6 36 Abs Basophils 0 10^3/uL 0-0.2 36 Abs Nucleated RBC 0 10^3/uL 36 Neutrophil % 45 % 38-83 36 Band % 2 % 0-8 36 Lymphocytes % 33 % 25-47 36 Monocytes % 13 % 0-13 36 Eosinophils % 6 % 0-6 36 Basophil % 1 % 0-2 36 RBC Morphology Normal Normal 36 Laboratory test finding 08/27/2012 Ferritin 33 ng/mL 11-307 36 Iron & Iron Binding Capacity 08/27/2012 Iron 125 g/dL 28-170 36 Unsaturated Iron Binding 167 g/dL 36 Total Iron Binding Capacity 292 g/dL 250-450 36 % Iron Saturation 43 % 15-55 36 Comp Metabolic Panel 08/27/2012 Sodium 142 mmol/L 133-145 36 Potassium 4.3 mmol/L 3.5-5.0 36 Chloride 100 mmol/L Low 101-111 36 Co2 Carbon Dioxide 30.0 mmol/L 22-32 36 Anion Gap 12.0 mmol/L High 2-11 36 Glucose 108 mg/dL High 70-100 36 Blood Urea Nitrogen 14 mg/dL 6-24 36 Creatinine 0.70 mg/dL 0.50-1.40 36 BUN/Creatinine Ratio 20.0 8-20 36 Calcium 10.3 mg/dL High 8.1-9.9 36 Total Protein 5.7 g/dL Low 6.2-8.1 36 Albumin 3.7 g/dL 3.6-5.4 36 Globulin 2.0 g/dL 2-4 36 Albumin/Globulin Ratio 1.9 1-3 36 Total Bilirubin 0.7 mg/dL 0.4-1.5 36 Alkaline Phosphatase 78 U/L 30-110 36 Alt 18 U/L 14-54 36 Ast 22 U/L 12-42 36 Egfr Non- 87.2 >60 36 Egfr 112.1 >60 36, 37 Human Papilloma Virus 08/27/2012 Human Papillomavirus Source CERV 38 Human Papillomavirus High Risk Negative Negative 38, 39 Laboratory test finding 08/27/2012 Cytology RUN DATE: 09/02/ <SEE 38, 40 NOTE> Laboratory test finding 08/27/2012 Free T4 0.83 ng/mL 0.61-1.24 41 TSH (Thyroid Stimulating Horm) 1.35 miu/mL 0.34-5.60 41 Vitamin B12 558 pg/mL 180-914 41 RBC Folic Acid 08/27/2012 Red Blood Cell Folate 567 ng/mL 280-903 41, 42 RBC Folate HCT 39.0 % 41 Laboratory test finding 08/27/2012 Erythrocyte Sed Rate 11 mm/Hr 0-30 41 Hepatitis C Antibody Nonreactive Nonreactive 41 Comp Metabolic Panel 06/27/2012 Sodium 140 mmol/L 133-145 Potassium 4.3 mmol/L 3.5-5.0 Chloride 102 mmol/L 101-111 Co2 Carbon Dioxide 32.0 mmol/L 22-32 Anion Gap 6.0 mmol/L 2-11 Glucose 85 mg/dL 70-100 Blood Urea Nitrogen 20 mg/dL 6-24 Creatinine 0.80 mg/dL 0.50-1.40 BUN/Creatinine Ratio 25.0 High 8-20 Calcium 9.7 mg/dL 8.1-9.9 Total Protein 6.7 g/dL 6.2-8.1 Albumin 3.9 g/dL 3.6-5.4 Globulin 2.8 g/dL 2-4 Albumin/Globulin Ratio 1.4 1-3 Total Bilirubin 0.7 mg/dL 0.4-1.5 Alkaline Phosphatase 98 U/L 30-110 Alt 21 U/L 14-54 Ast 25 U/L 12-42 Egfr Non- 74.7 >60 Egfr 96.1 >60 43 Manual Differential 03/28/2012 Neutrophil % 61.0 % 38-83 Band % 6.0 % 0-8 Lymphocytes % 15.0 % Low 25-47 Monocytes % 11.0 % 0-13 Eosinophils % 4.0 % 0-6 Basophil % 2.0 % 0-2 Reactive Lymph % 1.0 % 0-6 Metamyelocytes % 0 % 0-2 Myelocytes % 0 % 0-1 Promyelocytes % 0 % Blast % 0 % Macrocytosis 1+ Tear Drop Cells 1+ CBC Auto Diff 03/28/2012 White Blood Count 7.2 10^3/uL 4.8-10.8 Red Blood Count 3.43 10^6/uL Low 4.0-5.4 Hemoglobin 11.7 g/dL Low 12.0-16.0 Hematocrit 35 % 35-47 Mean Corpuscular Volume 102 fL High 80-97 Mean Corpuscular Hemoglobin 34 pg High 27-31 Mean Corpuscular HGB Conc 33 g/dL 31-36 Red Cell Distribution Width 16 % High 10.5-15 Platelet Count 138 10^3/uL Low 150-450 Mean Platelet Volume 9 um3 7.4-10.4 Abs Neutrophils 5.4 10^3/uL 1.5-7.7 Abs Lymphocytes 1.0 10^3/uL 1.0-4.8 Abs Monocytes 0.4 10^3/uL 0-0.8 Abs Eosinophils 0.4 10^3/uL 0-0.6 Abs Basophils 0 10^3/uL 0-0.2 Comp Metabolic Panel 03/28/2012 Sodium 136 mmol/L 133-145 Potassium 4.0 mmol/L 3.5-5.0 Chloride 102 mmol/L 101-111 Co2 Carbon Dioxide 28.0 mmol/L 22-32 Anion Gap 6.0 mmol/L 2-11 Glucose 90 mg/dL 70-100 Blood Urea Nitrogen 13 mg/dL 6-24 Creatinine 0.70 mg/dL 0.50-1.40 BUN/Creatinine Ratio 18.6 8-20 Calcium 9.2 mg/dL 8.1-9.9 Total Protein 5.6 GM/DL Low 6.2-8.1 Albumin 3.7 GM/DL 3.6-5.4 Globulin 1.9 GM/DL Low 2-4 Albumin/Globulin Ratio 1.9 1-3 Total Bilirubin 0.5 mg/dL 0.1-1.0 44 Alkaline Phosphatase 166 U/L High 30-110 Alt 27 U/L 14-54 Ast 31 U/L 12-42 Egfr Non- 87.2 >60 Egfr 112.1 >60 45 Comp Metabolic Panel 03/13/2012 Sodium 137 mmol/L 135-145 Potassium 4.0 mmol/L 3.5-5.0 Chloride 101 mmol/L 101-111 Co2 (Carbon Dioxide) 30.0 mmol/L 22-32 Anion Gap 6.0 mmol/L 2-11 46 Glucose 105 mg/dL High 70-100 BUN 17 mg/dL 6-24 Creatinine 0.7 mg/dL 0.50-1.40 One Over Creatinine 1.42 BUN/Creatinine Ratio 24.3 High 8-20 Calcium 9.9 mg/dL 8.1-9.9 Total Protein 5.7 GM/DL Low 6.2-8.1 Albumin 3.4 GM/DL Low 3.6-5.4 Globulin 2.3 GM/DL 2-4 Albumin/Globulin Ratio 1.5 1-3 Bilirubin Total 0.5 mg/dL 0.4-1.5 47 Alkaline Phosphatase 156 U/L High 30-110 Alt (SGPT) 45 U/L 14-54 Ast (Sgot) 36 U/L 12-42 eGFR Non- 87.2 > 60 eGFR 112.1 > 60 48 CBC Auto Diff 03/13/2012 White Blood Count 11.0 CUMM High 4.8-10.8 Red Cell Count 3.56 CUMM Low 4.2-5.4 Hemoglobin 12.2 g/dL 12.0-16.0 Hematocrit 37 % 35-47 Mean Corpuscular Volume 104 um3 High 79-97 Mean Corpuscular Hemoglob 34 pg High 27-31 Mean Corpuscular HGB Cone 33 g/dL 32-36 Redcell Distribution WDTH 17 % High 10.5-15 Platelet Count 135 CUMM Low 150-450 Mean Platelet Volume 8.8 um3 7.4-10.4 Absolute Neutrophil Count 8.9 High 1.5-7.7 Manual Differential 03/13/2012 Polysegmented Neutrophil 81 % 38-83 Lymphocyte 7 % Low 25-47 Monocyte 7 % 0-13 Eosinophil 5 % 0-6 Anisocytosis 1+ Macrocytosis 1+ CBC Auto Diff 02/28/2012 White Blood Count 11.3 CUMM High 4.8-10.8 Red Cell Count 3.52 CUMM Low 4.2-5.4 Hemoglobin 12.2 g/dL 12.0-16.0 Hematocrit 36 % 35-47 Mean Corpuscular Volume 103 um3 High 79-97 Mean Corpuscular Hemoglob 35 pg High 27-31 Mean Corpuscular HGB Cone 34 g/dL 32-36 Redcell Distribution WDTH 18 % High 10.5-15 Platelet Count 87 CUMM Low 150-450 49 Mean Platelet Volume 10.6 um3 High 7.4-10.4 Absolute Neutrophil Count 9.5 High 1.5-7.7 Manual Differential 02/28/2012 Polysegmented Neutrophil 72 % 38-83 Band Neutrophil 2 % 0-8 Lymphocyte 16 % Low 25-47 Monocyte 7 % 0-13 Eosinophil 1 % 0-6 Atypical Lymph 2 % 0-6 Anisocytosis 1+ Macrocytosis SLIGHT Manual Diff Comments (SEE NOTE) 50 Comp Metabolic Panel 02/14/2012 Sodium 137 mmol/L 135-145 Potassium 4.5 mmol/L 3.5-5.0 Chloride 102 mmol/L 101-111 Co2 (Carbon Dioxide) 31.0 mmol/L 22-32 Anion Gap 4.0 mmol/L 2-11 51 Glucose 91 mg/dL 70-100 BUN 10 mg/dL 6-24 Creatinine 0.7 mg/dL 0.50-1.40 One Over Creatinine 1.42 BUN/Creatinine Ratio 14.3 8-20 Calcium 9.6 mg/dL 8.1-9.9 Total Protein 5.7 GM/DL Low 6.2-8.1 Albumin 3.5 GM/DL Low 3.6-5.4 Globulin 2.2 GM/DL 2-4 Albumin/Globulin Ratio 1.6 1-3 Bilirubin Total 0.6 mg/dL 0.4-1.5 52 Alkaline Phosphatase 99 U/L 30-110 Alt (SGPT) 44 U/L 14-54 Ast (Sgot) 38 U/L 12-42 eGFR Non- 87.2 > 60 eGFR 112.1 > 60 53 CBC Auto Diff 02/14/2012 White Blood Count 5.0 CUMM 4.8-10.8 Red Cell Count 3.61 CUMM Low 4.2-5.4 Hemoglobin 12.1 g/dL 12.0-16.0 Hematocrit 36 % 35-47 Mean Corpuscular Volume 100 um3 High 79-97 Mean Corpuscular Hemoglob 33 pg High 27-31 Mean Corpuscular HGB Cone 33 g/dL 32-36 Redcell Distribution WDTH 18 % High 10.5-15 Platelet Count 246 CUMM 150-450 Mean Platelet Volume 9.1 um3 7.4-10.4 Absolute Neutrophil Count 3.1 1.5-7.7 Manual Differential 02/14/2012 Polysegmented Neutrophil 61 % 38-83 Lymphocyte 19 % Low 25-47 Monocyte 18 % High 0-13 Eosinophil 1 % 0-6 Basophil 1 % 0-2 Anisocytosis SLIGHT Manual Differential 02/08/2012 Polysegmented Neutrophil 75 % 38-83 Band Neutrophil 1 % 0-8 Lymphocyte 14 % Low 25-47 Monocyte 9 % 0-13 Basophil 1 % 0-2 Anisocytosis SLIGHT Macrocytosis SLIGHT Platelet Evaluation DECREASED CBC Auto Diff 02/08/2012 White Blood Count 7.5 CUMM 4.8-10.8 Red Cell Count 3.43 CUMM Low 4.2-5.4 Hemoglobin 11.5 g/dL Low 12.0-16.0 Hematocrit 34 % Low 35-47 Mean Corpuscular Volume 100 um3 High 79-97 Mean Corpuscular Hemoglob 34 pg High 27-31 Mean Corpuscular HGB Cone 34 g/dL 32-36 Redcell Distribution WDTH 16 % High 10.5-15 Platelet Count 73 CUMM Low 150-450 Mean Platelet Volume 10.2 um3 7.4-10.4 Absolute Neutrophil Count 6.0 1.5-7.7 CBC Auto Diff 01/25/2012 White Blood Count 5.2 CUMM 4.8-10.8 Red Cell Count 3.61 CUMM Low 4.2-5.4 Hemoglobin 12.1 g/dL 12.0-16.0 Hematocrit 36 % 35-47 Mean Corpuscular Volume 99 um3 High 79-97 Mean Corpuscular Hemoglob 34 pg High 27-31 Mean Corpuscular HGB Cone 34 g/dL 32-36 Redcell Distribution WDTH 17 % High 10.5-15 Platelet Count 213 CUMM 150-450 Mean Platelet Volume 8.7 um3 7.4-10.4 Gran % 54.8 % 38-83 Lymph % 20.8 % 20-45 Mononuclear % 22.7 % High 1-9 Eosinophil % 0.6 % 0-6 Basophil % 1.1 % 0-2 Abs Lymphs 1.1 1.0-4.8 Abs Mononuclear 1.2 High 0-0.8 Absolute Neutrophil Count 2.8 1.5-7.7 Abs Eosinophils 0 0-0.6 Abs Basophils 0.1 0-0.2 Manual Differential 01/18/2012 Polysegmented Neutrophil 63 % 38-83 Band Neutrophil 3 % 0-8 Lymphocyte 19 % Low 25-47 Monocyte 13 % 0-13 Atypical Lymph 2 % 0-6 Blast 0 % 0-0 Anisocytosis SLIGHT Hypochromasia SLIGHT Platelet Evaluation DECREASED CBC Auto Diff 01/18/2012 White Blood Count 6.2 CUMM 4.8-10.8 Red Cell Count 3.57 CUMM Low 4.2-5.4 Hemoglobin 11.9 g/dL Low 12.0-16.0 Hematocrit 35 % 35-47 Mean Corpuscular Volume 98 um3 High 79-97 Mean Corpuscular Hemoglob 34 pg High 27-31 Mean Corpuscular HGB Cone 34 g/dL 32-36 Redcell Distribution WDTH 16 % High 10.5-15 Platelet Count 73 CUMM Low 150-450 54 Mean Platelet Volume 9.5 um3 7.4-10.4 Absolute Neutrophil Count 4.4 1.5-7.7 Comp Metabolic Panel 01/18/2012 Sodium 135 mmol/L 135-145 Potassium 4.3 mmol/L 3.5-5.0 Chloride 103 mmol/L 101-111 Co2 (Carbon Dioxide) 28.0 mmol/L 22-32 Anion Gap 4.0 mmol/L 2-11 55 Glucose 93 mg/dL 70-100 BUN 11 mg/dL 6-24 Creatinine 0.7 mg/dL 0.50-1.40 One Over Creatinine 1.42 BUN/Creatinine Ratio 15.7 8-20 Calcium 9.6 mg/dL 8.1-9.9 Total Protein 6.1 GM/DL Low 6.2-8.1 Albumin 3.6 GM/DL 3.6-5.4 Globulin 2.5 GM/DL 2-4 Albumin/Globulin Ratio 1.4 1-3 Bilirubin Total 0.5 mg/dL 0.4-1.5 56 Alkaline Phosphatase 101 U/L 30-110 Alt (SGPT) 36 U/L 14-54 Ast (Sgot) 28 U/L 12-42 eGFR Non- 87.2 > 60 eGFR 112.1 > 60 57 Manual Differential 12/07/2011 Polysegmented Neutrophil 61 % 38-83 Band Neutrophil 4 % 0-8 Lymphocyte 20 % Low 25-47 Monocyte 11 % 0-13 Atypical Lymph 2 % 0-6 Metamyelocyte 2 % 0-2 RBC Morphology NORMAL CBC Auto Diff 12/07/2011 White Blood Count 9.4 CUMM 4.8-10.8 Red Cell Count 3.66 CUMM Low 4.2-5.4 Hemoglobin 12.0 g/dL 12.0-16.0 Hematocrit 35 % 35-47 Mean Corpuscular Volume 97 um3 79-97 Mean Corpuscular Hemoglob 33 pg High 27-31 Mean Corpuscular HGB Cone 34 g/dL 32-36 Redcell Distribution WDTH 12 % 10.5-15 Platelet Count 214 CUMM 150-450 Mean Platelet Volume 8.2 um3 7.4-10.4 Absolute Neutrophil Count 6.1 1.5-7.7 Comp Metabolic Panel 12/07/2011 Sodium 135 mmol/L 135-145 Potassium 4.8 mmol/L 3.5-5.0 Chloride 100 mmol/L Low 101-111 Co2 (Carbon Dioxide) 30.0 mmol/L 22-32 Anion Gap 5.0 mmol/L 2-11 58 Glucose 81 mg/dL 70-100 BUN 11 mg/dL 6-24 Creatinine 0.6 mg/dL 0.50-1.40 One Over Creatinine 1.66 BUN/Creatinine Ratio 18.3 8-20 Calcium 9.2 mg/dL 8.1-9.9 Total Protein 6.1 GM/DL Low 6.2-8.1 Albumin 3.2 GM/DL Low 3.6-5.4 Globulin 2.9 GM/DL 2-4 Albumin/Globulin Ratio 1.1 1-3 Bilirubin Total 0.3 mg/dL Low 0.4-1.5 59 Alkaline Phosphatase 90 U/L 30-110 Alt (SGPT) 17 U/L 14-54 Ast (Sgot) 18 U/L 12-42 eGFR Non- 104.2 > 60 eGFR 134.0 > 60 60 CBC With Manual Diff 12/04/2011 White Blood Count 9.2 CUMM 4.8-10.8 Red Cell Count 3.59 CUMM Low 4.2-5.4 Hemoglobin 11.5 g/dL Low 12.0-16.0 Hematocrit 35 % 35-47 Mean Corpuscular Volume 96 um3 79-97 Mean Corpuscular Hemoglob 32 pg High 27-31 Mean Corpuscular HGB Cone 33 g/dL 32-36 Redcell Distribution WDTH 13 % 10.5-15 Platelet Count 173 CUMM 150-450 Mean Platelet Volume 10.7 um3 High 7.4-10.4 Absolute Neutrophil Count 6.5 1.5-7.7 Polysegmented Neutrophil 76 % 38-83 Band Neutrophil 3 % 0-8 Lymphocyte 20 % Low 25-47 Monocyte 1 % 0-13 NRBC 1 High 0-0 Anisocytosis 2+ Manual Diff Comments (SEE NOTE) 61 CBC Auto Diff 11/23/2011 White Blood Count 4.9 CUMM 4.8-10.8 Red Cell Count 3.85 CUMM Low 4.2-5.4 Hemoglobin 12.8 g/dL 12.0-16.0 Hematocrit 38 % 35-47 Mean Corpuscular Volume 99 um3 High 79-97 Mean Corpuscular Hemoglob 33 pg High 27-31 Mean Corpuscular HGB Cone 34 g/dL 32-36 Redcell Distribution WDTH 13 % 10.5-15 Platelet Count 118 CUMM Low 150-450 Mean Platelet Volume 11.0 um3 High 7.4-10.4 Gran % 51.4 % 38-83 Lymph % 35.7 % 20-45 Mononuclear % 9.6 % High 1-9 Eosinophil % 3.0 % 0-6 Basophil % 0.3 % 0-2 Abs Lymphs 1.7 1.0-4.8 Abs Mononuclear 0.5 0-0.8 Absolute Neutrophil Count 2.6 1.5-7.7 Abs Eosinophils 0.1 0-0.6 Abs Basophils 0 0-0.2 Comp Metabolic Panel 11/23/2011 Sodium 137 mmol/L 135-145 Potassium 4.4 mmol/L 3.5-5.0 Chloride 103 mmol/L 101-111 Co2 (Carbon Dioxide) 29.0 mmol/L 22-32 Anion Gap 5.0 mmol/L 2-11 62 Glucose 105 mg/dL High 70-100 BUN 9 mg/dL 6-24 Creatinine 0.8 mg/dL 0.50-1.40 One Over Creatinine 1.25 BUN/Creatinine Ratio 11.3 8-20 Calcium 10.0 mg/dL High 8.1-9.9 Total Protein 5.9 GM/DL Low 6.2-8.1 Albumin 3.6 GM/DL 3.6-5.4 Globulin 2.3 GM/DL 2-4 Albumin/Globulin Ratio 1.6 1-3 Bilirubin Total 0.8 mg/dL 0.4-1.5 63 Alkaline Phosphatase 66 U/L 30-110 Alt (SGPT) 12 U/L Low 14-54 Ast (Sgot) 18 U/L 12-42 eGFR Non- 75.0 > 60 eGFR 96.5 > 60 64 Cytology Non-Program Production Specialist 11/22/2011 Cytology Non Program Production Specialist <SEE 65 NOTE> (HCG) 11/19/2011 Specific [place]dor[place] 1.017 1.010-1.0 Urine 30 Urine NEGATIVE Negative 66 Laboratory test finding 08/23/2011 CA 125 (Ovarian Cancer 123.8 U/mL High 2.0-35.0 67 Ag) TSH 1.50 MIU/ML 0.34-5.60 Comp Metabolic Panel 08/23/2011 Sodium 137 mmol/L 135-145 Potassium 5.5 mmol/L High 3.5-5.0 Chloride 103 mmol/L 101-111 Co2 (Carbon Dioxide) 30.0 mmol/L 22-32 Anion Gap 4.0 mmol/L 2-11 68 Glucose 87 mg/dL 70-100 BUN 12 mg/dL 6-24 Creatinine 0.9 mg/dL 0.50-1.40 One Over Creatinine 1.11 BUN/Creatinine Ratio 13.3 8-20 Calcium 10.0 mg/dL High 8.1-9.9 Total Protein 6.8 GM/DL 6.2-8.1 Albumin 4.0 GM/DL 3.6-5.4 Globulin 2.8 GM/DL 2-4 Albumin/Globulin Ratio 1.4 1-3 Bilirubin Total 0.8 mg/dL 0.4-1.5 69 Alkaline Phosphatase 69 U/L 30-110 Alt (SGPT) 10 U/L Low 14-54 Ast (Sgot) 16 U/L 12-42 eGFR Non- 65.5 > 60 eGFR 84.2 > 60 70 CBC With Manual Diff 08/23/2011 White Blood Count 7.0 CUMM 4.8-10.8 Red Cell Count 4.38 CUMM 4.2-5.4 Hemoglobin 14.3 g/dL 12.0-16.0 Hematocrit 42 % 35-47 Mean Corpuscular Volume 96 um3 79-97 Mean Corpuscular Hemoglob 33 pg High 27-31 Mean Corpuscular HGB Cone 34 g/dL 32-36 Redcell Distribution WDTH 13 % 10.5-15 Platelet Count 184 CUMM 150-450 Mean Platelet Volume 11.1 um3 High 7.4-10.4 Polysegmented Neutrophil 76 % 38-83 Lymphocyte 22 % Low 25-47 Monocyte 2 % 0-13 Absolute Neutrophil Count 5.3 Anisocytosis SLIGHT Laboratory test 08/23/2011 Cytology <SEE 71 finding NOTE> Laboratory test 09/01/2010 TSH 1.47 MIU/ML 0.34-5.6 finding 0 CBC With Manual 09/01/2010 White Blood 3.3 CUMM Low 4.8-10.8 Diff Count Red Cell Count 4.25 CUMM 4.2-5.4 Hemoglobin 13.8 g/dL 12.0-16.0 Hematocrit 41 % 35-47 Mean Corpuscular Volume 97 um3 79-97 Mean Corpuscular Hemoglob 32 pg High 27-31 Mean Corpuscular HGB Cone 33 g/dL 32-36 Redcell Distribution WDTH 13 % 10.5-15 Platelet Count 150 CUMM 150-450 Mean Platelet Volume 11.1 um3 High 7.4-10.4 Polysegmented Neutrophil 48 % 38-83 Band Neutrophil 5 % 0-8 Lymphocyte 34 % 25-47 Monocyte 11 % 0-13 Eosinophil 2 % 0-6 Absolute Neutrophil Count 1.7 RBC Morphology NORMAL Laboratory test finding 09/01/2010 Ferritin 25 NG/ML 11.0-307 Iron & Iron Binding Capacity 09/01/2010 Iron Total 44 g/dL 28-170 Unsaturated Iron Binding 217 g/dL Total Iron Binding Capacity 261 g/dL 250-450 % Iron Saturation 17 % 15-55 Comp Metabolic Panel 09/01/2010 Sodium 140 mmol/L 135-145 Potassium 4.6 mmol/L 3.5-5.0 Chloride 105 mmol/L 101-111 Co2 (Carbon Dioxide) 31.0 mmol/L 22-32 Anion Gap 4.0 mmol/L 2-11 72 Glucose 94 mg/dL 70-100 BUN 10 mg/dL 6-24 Creatinine 0.90 mg/dL 0.50-1.40 One Over Creatinine 1.10 BUN/Creatinine Ratio 11.1 8-20 Calcium 8.9 mg/dL 8.1-9.9 Total Protein 6.2 GM/DL 6.2-8.1 Albumin 3.8 GM/DL 3.6-5.4 Globulin 2.4 GM/DL 2-4 Albumin/Globulin Ratio 1.6 1-3 Bilirubin Total 0.5 mg/dL 0.4-1.5 73 Alkaline Phosphatase 70 U/L 30-110 Alt (SGPT) 15 U/L 14-54 Ast (Sgot) 22 U/L 12-42 eGFR Non- 65.7 > 60 eGFR 84.6 > 60 74 Lipid Profile (Trig/Chol/HDL) 09/01/2010 Triglyceride 75 mg/dL 40-200 Cholesterol 168 mg/dL Less Than 200 75 High Density Lipoprotein 54 mg/dL 40-60 76 Cholesterol/HDL Ratio 3.11 AVERAGE 1-4.44 Low Density Lipoprotein 99 mg/dL Less Than 100 77 Laboratory test 07/20/2010 Cytology <SEE 78 finding NOTE> Laboratory test 07/14/2009 Cytology <SEE 79 finding NOTE> Laboratory test 06/02/2009 TSH 1.73 MIU/ML 0.34-5.60 finding Sensitivity 12/13/2008 Clindamycin <=0.25 Ciprofloxacin <=0.5 Erythromycin <=0.25 Gentamicin <=0.5 Levofloxacin 0.5 Linezolid 1 Oxacillin 0.5 Rifampin <=0.5 Trimeth-Sulfa <=10 Tetracycline <=1 Tigecycline <=0.12 Vancomycin <=0.5 Culture Sensitivity 12/13/2008 Culture STAPH LUGDUNENSI 80 Sensitivity <SEE NOTE> Laboratory test 10/22/2008 Fasting Urine NEGATIVE Negative 81 finding Glucose 2HR Glucose 78 mg/dL 81, 82 Fasting Glucose 84 mg/dL 70-110 81 1HR Glucose 83 mg/dL 81, 83 Laboratory test finding 03/24/2008 Total Iron Binding 253 g/dL 245-419 Capacity Comprehensive Metabolic 03/24/2008 Glucose 93 mg/dL 76-115 Panel BUN 14 mg/dL 5-23 Creatinine 0.9 mg/dL 0.5-1.4 BUN/Creat 15.5 Sodium 137 mEq/L 136-145 Potassium 4.2 mEq/L 3.5-5.1 Chloride 101 mEq/L 98-107 Carbon Dioxide 32 mEq/L 21-32 Anion Gap 8 mEq/L 8-16 Calcium 9.1 mg/dL 8.5-10.1 Total Protein 7.1 g/dL 6.3-8.0 Albumin 3.8 g/dL 3.5-5.0 Globulin 3.3 gm/dL 1.9-4.3 Alb/Glob 1.2 Bilirubin,Total 0.4 mg/dL 0.2-1.2 Sgot/Ast 13 U/L Low 16-40 SGPT/Alt 27 U/L Low 30-65 Alkaline Phosphatase 88 U/L 50-136 Protein Electro.,S 03/24/2008 Protein,Total,Serum 6.6 g/dL 6.0-8.5 Albumin 3.7 g/dL 3.2-5.6 Shadp-7-Tpjdittd 0.2 g/dL 0.1-0.4 Xexzf-6-Utoqpkzh 0.7 g/dL 0.4-1.2 Beta Globulin 1.0 g/dL 0.6-1.3 Gamma Globulin 1.0 g/dL 0.5-1.6 M-Yves Not Observed NotObservedg Globulin, Total 2.9 g/dL 2.0-4.5 A/G Ratio 1.3 0.7-2.0 Note: (SEE NOTE) 84 Laboratory test finding 03/24/2008 Anti-Nuclear Antibody(S) 23 AU/mL 0- 99 85 CBC/Manual Differential 03/24/2008 White Blood Count 6.3 K/uL 3.1-10.7 Red Blood Count 4.35 M/uL 3.90-5.40 Hemoglobin 13.9 gm/dL 11.6-15.8 Hematocrit 42.1 % 36.0-46.1 Mean Cell Volume 96.8 fl 80.9-99.0 Mean Corpuscular HGB 32.0 pg 25.9-32.7 Mean Corpuscular HGB Conc 33.0 g/dL 30.8-34.3 Platelet Count 188 K/uL 155-360 Red Cell Distri Width %CV 12.2 % 11.7-14.4 Mean Platelet Volume 11.5 fL 8.9-12.4 Total Cells Counted 100 #CELLS Neutrophils% 52 % 33-73 Lymph% 34 % 17-56 Platelet Estimate NORMAL Band% 1 % 0-8 Monocyte% 6 % 0-10 Eosinophil% 6 % High 0-5 Basophil% 1 % 0-2 Hypochromia 0-1+ Anisocytosis 1+ Macrocytosis 1+ Rouleaux 1+ Laboratory test finding 03/24/2008 Sedimentation Rate 13 mm/hr 0-30 Rheumatoid Factor Screen NEGATIVE Negative Vitamin B12 And Folate 03/24/2008 Vitamin B12 747 pg/mL 208-964 Folic Acid 17.7 ng/mL High 6.0-15.4 Laboratory test finding 03/24/2008 Ferritin 32.0 ng/mL 3-105 Thyroid Stim Hormone 1.26 uIU/mL 0.49-4.67 FSH 8.4 mIU/mL 86 Free T4 0.90 ng/dL 0.71-1.85 Free T3 2.34 pg/mL 1.45-3.48 Laboratory test 03/18/2008 Cytology <SEE 87 finding NOTE> Surgical Pathology 10/03/2007 Surgical <SEE 88 Pathology NOTE> Laboratory test 07/05/2007 Triiodothyronine, DNR 89 finding Total CBC/Manual 07/05/2007 White Blood Count 5.0 K/uL 3.4-10.5 Differential Red Blood Count 4.57 M/uL 3.90-5.20 Hemoglobin 14.8 gm/dL 11.5-15.5 Hematocrit 42.9 % 34.0-46.0 Mean Cell Volume 93.8 fL 80.0-96.0 Mean Corpuscular HGB 32.3 pg 27.0-33.0 Mean Corpuscular HGB Conc 34.5 g/dL 31.7-36.0 Platelet Count 176 K/uL 150-400 Red Cell Distri Width %CV 12.4 % 11.6-15.8 Mean Platelet Volume 8.6 fl 6.6-10.6 Total Cells Counted 100 #CELLS Neutrophils% 49 % 33-73 Lymph% 36 % 17-56 Platelet Estimate NORMAL Band% 1 % 0-8 Atypical Lymph% 2 % 0-7 Monocyte% 6 % 0-10 Eosinophil% 5 % 0-5 Basophil% 1 % 0-2 RBC Morphology NORMAL Laboratory test finding 07/05/2007 Sedimentation Rate 13 mm/hr 0-20 CBS W/Automated Diff DNR 90 Thyroid Stim Hormone 1.45 uIU/mL 0.49-4.67 Free T4 0.96 ng/dL 0.71-1.85 Thyroxine (T4) DNR 91 Anti-Thyroid Antibodies 07/05/2007 Thyroid Antithyroglobulin AB < 20 IU/mL 0-40 92 Thyroid Peroxidase Antibodies < 10 IU/mL 0-34 Laboratory test finding 07/05/2007 Free T3 2.33 pg/mL 1.45-3.48 LDL Cholesterol Profile 07/05/2007 Cholesterol 181 mg/dL 120-200 Triglycerides 52 mg/dL 0-210 HDL Cholesterol 60 mg/dL 32-96 LDL-Cholesterol 111 mg/dL 62-185 CMP 07/05/2007 Glucose 81 mg/dL 76-115 BUN 21 mg/dL 5-23 Creatinine 0.9 mg/dL 0.5-1.4 BUN/Creat 23.3 Sodium 137 mEq/L 136-145 Potassium 4.3 mEq/L 3.5-5.1 Chloride 104 mEq/L 98-107 Carbon Dioxide 28 mEq/L 21-32 Anion Gap 9 mEq/L 8-16 Calcium 8.9 mg/dL 8.5-10.1 Total Protein 6.8 g/dL 6.3-8.0 Albumin 3.9 g/dL 3.5-5.0 Globulin 2.9 gm/dL 1.9-4.3 Alb/Glob 1.3 Bilirubin,Total 0.7 mg/dL 0.2-1.2 Sgot/Ast 16 U/L 16-40 SGPT/Alt 29 U/L Low 30-65 Alkaline Phosphatase 81 U/L 50-136 Laboratory test 07/05/2007 Rheumatoid Factor Screen NEGATIVE Negative finding Laboratory test 03/12/2007 Cytology 93 finding <SEE NOTE> Laboratory test 03/18/2006 Thyroid Stim Hormone 0.92 uIU/mL 0.49-4.67 finding Anti-Thyroid 03/18/2006 Thyroid Antithyroglobulin < 20 IU/mL 0-40 Antibodies AB Thyroid Peroxidase Antibodies < 10 IU/mL 0-34 Laboratory test finding 01/21/2006 Culture Sensitivity FEW [COAG NEG ST 94, 95 <SEE NOTE> Laboratory test finding 01/15/2006 Surgical Pathology 96 <SEE NOTE> Laboratory test finding 07/18/2005 Prolactin 17.4 97 TSH Thyroid Stimulating Horm 1.89 97 CMP Panel 07/18/2005 Albumin 3.6 97 Alt - SGPT 33 97 Calcium 0.6 97 Carbon Dioxide 31 97 Chloride 103 97 Creatinine 0.7 97 Glucose Serum 83 97 Alkaline Phosphatase 78 97 Potassium 4.4 97 Protien Total 6.7 97 Sodium 137 97 Ast - Sgot 24 97 BUN - Urea Nitrogen 17 97 CBC With Electronic Diff 07/18/2005 White Blood Count 5.0 97 RBC Red Blood Count 4.22 97 Hemoglobin 13.9 97 Hematocrit 39.5 97 MCV (Corpuscular Volume) 93.5 97 MCH (Corpuscular Hemoglobin) 32.9 97 MCHC (Corpuscular Hemog Conc) 35.2 97 Platelet Count 186 97 MPV 9.3 97 Lipid Panel 07/18/2005 Cholesterol Total 182 97 High Density Lipoprotein 47 97 LDL Low Density Lipoprotein 126 97 Triglycerides 47 97 Laboratory test finding 10/11/2004 TSH Thyroid Stimulating Horm 1.41 FSH Serum 5.6 Laboratory test finding 09/13/2004 Occult Blood - Stool negative x3 Ua Inhouse 08/23/2004 Ua Glucose - Ua Bilirubin - Ua Ketones - Ua Specific [place] 1.030 Ua Blood - Ua PH 6.0 Ua Protein - Ua Urobilinogen - Ua Nitrite - Ua Leukocytes - CBC With Electronic Diff 04/27/2004 White Blood Count 6.5 CUMM 4.8-10.8 Abs Basophils 0 0-0.2 Abs Eosinophils 0.1 0-0.6 Abs Grans 3.6 1.5-7.7 Abs Lymphs 2.2 1.0-4.8 Abs Mononuclear 0.5 0-0.8 Basophil % 0.6 % 0-2 Hematocrit 43 % 35-47 Hemoglobin 14.5 g/dL 12.0-16.0 Eosinophil % 1.8 % 0-6 Gran % 55.5 % 38-83 Lymph % 33.7 % 20-45 Mean Corpuscular HGB Cone 34 g/dL 32-36 Mean Corpuscular Hemoglob 33 pg High 27-31 Mean Corpuscular Volume 97 um3 79-97 Mean Platelet Volume 10.3 um3 7.4-10.4 Mononuclear % 8.4 % 1-9 Platelet Count 182 CUMM 150-450 Red Cell Count 4.45 CUMM 4.2-5.4 Redcell Distribution WDTH 13 % 10.5-15 Laboratory test finding 04/27/2004 TSH 1.91 MIU/ML 0.34-5.60 Lipid Profile (Trig/Chol/HDL) 04/27/2004 Cholesterol 183 mg/dL Less Than 200 98 Triglyceride 66 mg/dL 40-200 High Density Lipoprotein 50 mg/dL 40-60 Low Density Lipoprotein 120 mg/dL High Less Than 100 99 Cholesterol/HDL Ratio 3.66 AVERAGE 1-4.44 Comp Metabolic Panel 04/27/2004 Anion Gap 7.0 mmol/L 2-11 100 Albumin/Globulin Ratio 1.6 1-3 Albumin 3.9 GM/DL 3.6-5.4 Alkaline Phosphatase 65 U/L 30-110 Alt (SGPT) 14 U/L 14-54 Ast (Sgot) 19 U/L 12-42 BUN 13 mg/dL 6-24 Calcium 9.4 mg/dL 8.7-10.2 Chloride 102 mmol/L 101-111 Co2 (Carbon Dioxide) 28.0 mmol/L 22-32 Creatinine 0.9 mg/dL 0.5-1.4 Globulin 2.5 GM/DL 2-4 Glucose 89 mg/dL 70-105 Potassium 4.6 mmol/L 3.5-5.0 Sodium 137 mmol/L 135-145 Bilirubin Total 0.9 mg/dL 0.4-1.5 Total Protein 6.4 GM/DL 6.2-8.1 BUN/Creatinine Ratio 14.4 8-20 Thyroid Panel 04/27/2004 Thyroxine 9.1 g/dL 5-12 Free Thyroxine 0.90 ng/dL 0.58-1.64 1 Desirable: <150 Borderline High: 150-199 High: 200-499 Very High: >500 2 Desirable: <200 Borderline High: 200-239 High: >239 3 Low: <40 Desirable: 40-60 High: >60 4 Desirable: <100 Near Optimal: 100-129 Borderline High: 130-159 High: 160-189 Very High: >189 5 Because ethnic data is not always readily available, this report includes an eGFR for both -Americans and non- Americans. The National Kidney Disease Education Program (NKDEP) does not endorse the use of the MDRD equation for patients that are not between the ages of 18 and 70, are , have extremes of body size, muscle mass, or nutritional status, or are non- or non-. According to the National Kidney Foundation, irrespective of diagnosis, the stage of the disease is based on the level of kidney function: Stage Description GFR(mL/min/1.73 m(2)) 1 Kidney damage with normal or decreased GFR 90 2 Kidney damage with mild decrease in GFR 60-89 3 Moderate decrease in GFR 30-59 4 Severe decrease in GFR 15-29 5 Kidney failure <15 (or dialysis) 6 [id number] SEE RESULT BELOW Name: TELMA MCCANNGERSON Salgado : [address]: Mehran Riojas MD Acct: [id number] Unit: [id number] AGE: 61 Location: [facility] Re12/28/16 SEX: F Status: DEP REF SPEC: [id number] JEFFERY: 12/28/16-[address]: Mehran Riojas MD REQ: [id number] RECD: 12/28/16-1223 STATUS: ANDERSON BORREGO DR: Poncho Torres MD _ ORDERED: LEVEL 4 COMMENTS: [id number] FINAL DIAGNOSIS Colon, 40 cm, biopsy: -- Hyperplastic polyps. CLINICAL HISTORY No history given POST-OPERATIVE DIAGNOSIS Colonoscopy to terminal ileum - polyps at 40 cm x2; 5-10 years GROSS DESCRIPTION The specimen is received in formalin labeled, Biopsy Colon Polyps at 40 cm, and consists of two lozano irregular to polypoid soft tissue fragments averaging 0.3 x 0.2 x 0.2 cm, which are submitted entirely in one cassette. Signed (signature on file) Wei Perry MD 1150 END OF REPORT * ML=Testing performed at Main Lab DEPARTMENT OF PATHOLOGY, [address] [place] [address] Wei Perry M.D. Director [facility] # [id number] 8 Because ethnic data is not always readily available, this report includes an eGFR for both -Americans and non- Americans. The National Kidney Disease Education Program (NKDEP) does not endorse the use of the MDRD equation for patients that are not between the ages of 18 and 70, are , have extremes of body size, muscle mass, or nutritional status, or are non- or non-. According to the National Kidney Foundation, irrespective of diagnosis, the stage of the disease is based on the level of kidney function: Stage Description GFR(mL/min/1.73 m(2)) 1 Kidney damage with normal or decreased GFR 90 2 Kidney damage with mild decrease in GFR 60-89 3 Moderate decrease in GFR 30-59 4 Severe decrease in GFR 15-29 5 Kidney failure <15 (or dialysis) 9 Desirable <150 Borderline high 150-199 High 200-499 Very High >500 10 Desirable <200 Borderline high 200-239 High >239 11 Low <40 Desirable: 40-60 High: >60 12 Desirable: <100 mg/dL Near Optimal: 100-129 mg/dL Borderline High: 130-159 mg/dL High: 160-189 mg/dL Very High: >189 mg/dL 13 No interferon-gamma response to M. tuberculosis antigens was detected. Infection with M. tuberculosis is unlikely. A negative result alone does not exclude infection with M. tuberculosis. For detailed information regarding test interpretation see: [email or web address]/test-catalog/ Clinical+and+[email or web address] 14 Test Performed by: [facility] [place] [address] Print Production Associate: Cira Kirkland II, M.D., Ph.D. 15 OPERATION/PROCEDURE U/S guided hysteroscopy, D+C DIAGNOSIS: PART 1: "UTERUS, ENDOMETRIUM, BIOPSY": - BENIGN ENDOMETRIAL POLYP. PART 2: "UTERUS, ENDOMETRIUM, CURETTAGE": - SUPERFICIAL INACTIVE APPEARING ENDOMETRIAL MUCOSA WITH STROMAL BREAKDOWN, BLOOD AND INFLAMED MUCOUS. - NO EVIDENCE OF HYPERPLASIA OR NEOPLASIA. PART 3: "VAGINAL CYSTIC MASS, EXCISION": - BENIGN, INFLAMED POLYPOID CYST, FAVOR NULLARIAN MUCOUS CYST - SEE COMMENT. MARCELO/lesly 1100 INTERPRETATION COMMENT The polypoid mass in Part 3, is inflamed and demonstrates evidence of torsion. The central cystic area is lined by columnar appearing cells with tubal metaplasia, as well as squamous metaplasia. No mucin producing elements are seen. The differential diagnosis includes malarian cyst vs. Mirza's duct cyst. Regardless of origin this is a benign lesion. GROSS Received in formalin in three properly labeled containers with the patient's name and accession number. Part one is designated, "ENDOMETRIAL MASS". The specimen consists of a single piece of soft lozano tissue measuring 1.0 x 0.8 x 0.5 cm. Submitted entirely, one cassette. Part two is designated, "ENDOMETRIAL CURETTINGS". The specimen consists of several pieces of soft lozano-brown tissue measuring 2.5 x 1.0 x 0.4 cm. in aggregate. Submitted entirely, one cassette. GROSS (Continued) Part three is designated, "VAGINAL CYSTIC MASS". The specimen consists of several pieces of soft brown-red tissue measuring 1.2 x 0.6 x 0.4 cm. in aggregate. Submitted entirely, one cassette. /clf PRE OPERATIVE DIAGNOSIS Postmenopausal bleeding REVIEW CODE CODE: I Signed Electronically signed WEI PERRY MD 1145 16 GRAM STAIN ! RARE WHITE BLOOD CELLS ! NO ORGANISMS SEEN ! NO EPITHELIAL CELLS 17 Organism 1 ! NO GROWTH 18 GRAM STAIN ! RARE WHITE BLOOD CELLS ! NO ORGANISMS SEEN ! NO EPITHELIAL CELLS 19 NO GROWTH: FINAL REPORT 20 QUERY: Is the Patient Fasting? N 21 QUERY: Is the Patient Fasting? N 22 Performed at: [address] [id number] Hr Intern: Cira Marvin MD, Phone: [phone] 23 Because ethnic data is not always readily available, this report includes an eGFR for both -Americans and non- Americans. The National Kidney Disease Education Program (NKDEP) does not endorse the use of the MDRD equation for patients that are not between the ages of 18 and 70, are , have extremes of body size, muscle mass, or nutritional status, or are non- or non-. According to the National Kidney Foundation, irrespective of diagnosis, the stage of the disease is based on the level of kidney function: Stage Description GFR(mL/min/1.73 m(2)) 1 Kidney damage with normal or decreased GFR 90 2 Kidney damage with mild decrease in GFR 60-89 3 Moderate decrease in GFR 30-59 4 Severe decrease in GFR 15-29 5 Kidney failure <15 (or dialysis) 24 Normally menstruating females - Follicular phase 3 - 9 - Mid-cycle peak 4 - 23 - Luteal phase 1 - 6 Postmenopausal females 16 - 114 25 Normally menstruating females - Follicular Phase 1 - 18 - Mid-Cycle Peak 24 - 105 - Luteal Phase 0.6 - 20 Postmenopausal females 15 - 62 26 Postmenopausal Females < 20 Ovulating females: by day in cycle relative to LH Peak Follicular phase - 12 10-50 - 4 60-200 Mid-cycle - 1 120-375 Luteal phase + 2 50-155 + 6 60-260 + 12 15-115 27 abdomen skin swab 28 Laboratory developed test. Test Performed by: [address] [id number] Print Production Associate: Benny Garcia III, M.D. 29 Assay by Chemiluminescence microparticle immunoassay on the [employer] Cent[employer]. Values obtained with different methods or kits cannot be used interchangeably for patient monitoring. Results cannot be interpreted as absolute evidence of the presence or absence of malignancy. The test is not interpretable in . 30 Because ethnic data is not always readily available, this report includes an eGFR for both -Americans and non- Americans. The National Kidney Disease Education Program (NKDEP) does not endorse the use of the MDRD equation for patients that are not between the ages of 18 and 70, are , have extremes of body size, muscle mass, or nutritional status, or are non- or non-. According to the National Kidney Foundation, irrespective of diagnosis, the stage of the disease is based on the level of kidney function: Stage Description GFR(mL/min/1.73 m(2)) 1 Kidney damage with normal or decreased GFR 90 2 Kidney damage with mild decrease in GFR 60-89 3 Moderate decrease in GFR 30-59 4 Severe decrease in GFR 15-29 5 Kidney failure <15 (or dialysis) 31 Interpretation: 51-80 ng/mL (increased risk of hypercalciuria) -- REFERENCE VALUE -- 25-HYDROXY D TOTAL (D2+D3) Optimum levels in the healthy population are 20-50, patients with bone disease may benefit from higher levels within this range. Test Performed by: [facility] [address] [place] [address] Print Production Associate: Benny Garcia III, M.D. 32 RUN DATE: 05/01/13 [facility] LAB LIVE PAGE 1 RUN TIME: [address] [place] [id number] Specimen Inquiry Name: MELONY MCCANN : [address]: Poncho Torres MD Acct: [id number] Unit: [id number] AGE: 57 Location: [facility] Re04/28/13 SEX: F Status: REG REF SPEC: [id number] JEFFERY: 04/28/[address] [facility] [address]: Poncho Torres MD REQ: [id number] RECD: 04/28/13 STATUS: SOUT _ ORDERED: LEVEL IV FINAL DIAGNOSIS Skin, right posterior lateral shoulder, biopsy: Hyperplastic actinic keratosis, inflamed. CLINICAL HISTORY On right posterior lateral shoulder present a couple of months there is an up to 6-7 mm. rounded dome shaped erythematous papule with an overlying white crust. PRE-OPERATIVE DIAGNOSIS Neoplasm uncertain. GROSS DESCRIPTION The specimen is received unlabeled but packaged with a pathology requisition labeled Melony Mccann, Shave Biopsy Right Posterior Lateral Shoulder. Accompanying the requisition is a specimen approval form Non-Recollectable Specimen Form due to the labeling failure signed by Dr. Poncho Torres on 04/29/2013 and labeled Melony Mccann, 1955. The specimen consists of a shave biopsy specimen measuring 0.7 x 0.4 x 0.2 cm. The specimen is inked, sectioned along its short axis, and submitted entirely in one cassette. Signed (signature on file) Shereen Brothers MD 1544 END OF REPORT * ML=Testing performed at Main Lab DEPARTMENT OF PATHOLOGY, [address] [place] [address] Wei Perry M.D. Director [facility] Permit #[id number] 33 Because ethnic data is not always readily available, this report includes an eGFR for both -Americans and non- Americans. The National Kidney Disease Education Program (NKDEP) does not endorse the use of the MDRD equation for patients that are not between the ages of 18 and 70, are , have extremes of body size, muscle mass, or nutritional status, or are non- or non-. According to the National Kidney Foundation, irrespective of diagnosis, the stage of the disease is based on the level of kidney function: Stage Description GFR(mL/min/1.73 m(2)) 1 Kidney damage with normal or decreased GFR 90 2 Kidney damage with mild decrease in GFR 60-89 3 Moderate decrease in GFR 30-59 4 Severe decrease in GFR 15-29 5 Kidney failure <15 (or dialysis) 34 -- REFERENCE VALUE -- 25-HYDROXY D TOTAL (D2+D3) Optimum levels in the normal population are 25-80 Test Performed by: [address] [address] Print Production Associate: Benny Garcia III, M.D. 35 Performed at: RN - [facility] [address] [id number] Hr Intern: María Graham MD, Phone: [phone] 36 Folate RBC pending, should be here in next couple of days. SL 37 Because ethnic data is not always readily available, this report includes an eGFR for both -Americans and non- Americans. The National Kidney Disease Education Program (NKDEP) does not endorse the use of the MDRD equation for patients that are not between the ages of 18 and 70, are , have extremes of body size, muscle mass, or nutritional status, or are non- or non-. According to the National Kidney Foundation, irrespective of diagnosis, the stage of the disease is based on the level of kidney function: Stage Description GFR(mL/min/1.73 m(2)) 1 Kidney damage with normal or decreased GFR 90 2 Kidney damage with mild decrease in GFR 60-89 3 Moderate decrease in GFR 30-59 4 Severe decrease in GFR 15-29 5 Kidney failure <15 (or dialysis) 38 08/28/12 pap complete, waiting for HPV results. SL 39 For types 16, 18, 31, 33, 35, 39, 45, 51, 52, 56, 58, 59 and 68. Test Performed by: [address] [id number] Print Production Associate: Benny Garcia III, M.D. 40 RUN DATE: 09/02/12 [facility] LAB LIVE PAGE 1 RUN TIME: [address] [place] [id number] Specimen Inquiry Name: MELONY MCCANN : [address]: Jaylyn Altamirano MD Acct: [id number] Unit: [id number] AGE: 56 Location: [facility] Re08/27/12 SEX: F Status: REG REF SPEC: [id number] JEFFERY: 08/27/[address] [facility] [address]: Jaylyn Altamirano MD REQ: [id number] RECD: 08/27/12 STATUS: SOUT _ ORDERED: IMAGE ANALYSIS, HPV / Thin Prep HiRisk Human Papilloma Virus test results received with preparation and diagnosis completed by [facility], [place], [place]. Results: NEGATIVE High Risk (for types 16, 18, 31, 33, 35, 39, 45, 51, 52, 56, 58, 59, 68) Thinkglue Hybrid Capture Specimen Transport Media or W[employer]eline ThinPrep PapTest PreservCyt Solution are the collection systems approved for use with this method by the U.S. Food and Drug Administration. Performance characteristics for [employer] collection device have been determined by Laboratory Medicine and Pathology , [facility], [place], [place]. It has not been cleared or approved by the U.S. Food and Drug Administration. Test Performed by: [facility] Dpt of lab Med and Pathology [address] [place] [id number] Print Production Associate: Benny Garcia III, M.D. Original hard copy report from [facility] [employer] is available upon request by calling Pathology at [phone]. Addendum Signed KHUSHBOO Hansen (ASCP) 09/02 1017 FINAL DIAGNOSIS Negative for Intraepithelial lesion or Malignancy COMMENTS: Specimen sent to [facility] in [place], [place] on 08/28/12. Results will be reported separately in an Addendum. A. Ectocervical/Endocervical Specimen Adequacy: CONTINUED ON NEXT PAGE * ML=Testing performed at Main Lab DEPARTMENT OF PATHOLOGY, [facility] [employer] [place], [place] [address] Wei Perry M.D. Director [facility] Permit #[id number] RUN DATE: 09/02/12 [facility] LAB LIVE PAGE 2 RUN TIME: 1016 [facility] [employer] [place], [place] [address] Specimen Inquiry Patient: MELONY MCCANN [id number] (Continued) CYTOLOGY ADEQ (Continued) Satisfactory of evaluation Transformation zone component identified Patient Information: HPV: High risk HPV DNA testing regardless of pap results. Actual Specimen Date: 08/27/12 Cautery: N IUD: N Lesion, grossly demonstrate: N ?: N Post Menopausal?: Y Hysterectomy?: N Other Pertinent History: Menopause induced by Tamoxifen Signed (signature on file) KHUSHBOO Hansen (ASCP) 08/28 1221 This Pap test was evaluated with the assistance of the ThinPrep Test Imaging System. Due to cytologic findings at the therapist radiation microscope, comprehensive manual rescreening by a Director Of Food And Beverage Services may be required. The Pap Smear is a screening test designed to aid in the detection of premalignant and malignant conditions of the uterine cervix. It is not a diagnostic procedure and should not be used as the sole means of detecting cervical cancer. Both false- positive and false- negative reports do occur. Depending on your risk status, a Pap smear shoudl be obtained and evaluated every 1-3 years. END OF REPORT * ML=Testing performed at Main Lab DEPARTMENT OF PATHOLOGY, [address] [place] [address] Wei Perry M.D. Director [facility] Permit #[id number] 41 Folate RBC pending, should be here in next couple of days. SL 42 Test Performed by: [facility] [address] [place] [id number] 43 Because ethnic data is not always readily available, this report includes an eGFR for both -Americans and non- Americans. The National Kidney Disease Education Program (NKDEP) does not endorse the use of the MDRD equation for patients that are not between the ages of 18 and 70, are , have extremes of body size, muscle mass, or nutritional status, or are non- or non-. According to the National Kidney Foundation, irrespective of diagnosis, the stage of the disease is based on the level of kidney function: Stage Description GFR(mL/min/1.73 m(2)) 1 Kidney damage with normal or decreased GFR 90 2 Kidney damage with mild decrease in GFR 60-89 3 Moderate decrease in GFR 30-59 4 Severe decrease in GFR 15-29 5 Kidney failure <15 (or dialysis) 44 A metabolite of Naproxen, O-desmethylnaproxen, has been shown to interfere with the Jendrassik-[place] method for measuring total bilirubin. Samples from patients who have taken Naproxen have shown spurious elevation in total bilirubin levels. 45 Because ethnic data is not always readily available, this report includes an eGFR for both -Americans and non- Americans. The National Kidney Disease Education Program (NKDEP) does not endorse the use of the MDRD equation for patients that are not between the ages of 18 and 70, are , have extremes of body size, muscle mass, or nutritional status, or are non- or non-. According to the National Kidney Foundation, irrespective of diagnosis, the stage of the disease is based on the level of kidney function: Stage Description GFR(mL/min/1.73 m(2)) 1 Kidney damage with normal or decreased GFR 90 2 Kidney damage with mild decrease in GFR 60-89 3 Moderate decrease in GFR 30-59 4 Severe decrease in GFR 15-29 5 Kidney failure <15 (or dialysis) 46 Anion gap measurement may be of limited value in the presence of any alkalosis, especially in a combined acid base disorder. . 47 A metabolite of Naproxen, O-desmethylnaproxen, has been shown to interfere with the Jendrassik-[place] method for measuring total bilirubin. Samples from patients who have taken Naproxen have shown spurious elevation in total bilirubin levels. 48 Because ethnic data is not always readily available, this report includes an eGFR for both -Americans and non- Americans. The National Kidney Disease Education Program (NKDEP) does not endorse the use of the MDRD equation for patients that are not between the ages of 18 and 70, are , have extremes of body size, muscle mass, or nutritional status, or are non- or non-. According to the National Kidney Foundation, irrespective of diagnosis, the stage of the disease is based on the level of kidney function: Stage Description GFR(mL/min/1.73 m(2)) 1 Kidney damage with normal or decreased GFR 90 2 Kidney damage with mild decrease in GFR 60-89 3 Moderate decrease in GFR 30-59 4 Severe decrease in GFR 15-29 5 Kidney failure <15 (or dialysis) 49 PLATELET COUNT CONFIRMED BY SMEAR ESTIMATE 50 CBC AND SMEAR REVIEWED. REVIEWED BY ALONDRA CUEVAS MD 51 Anion gap measurement may be of limited value in the presence of any alkalosis, especially in a combined acid base disorder. . 52 A metabolite of Naproxen, O-desmethylnaproxen, has been shown to interfere with the Jendrassik-Faith method for measuring total bilirubin. Samples from patients who have taken Naproxen have shown spurious elevation in total bilirubin levels. 53 Because ethnic data is not always readily available, this report includes an eGFR for both -Americans and non- Americans. The National Kidney Disease Education Program (NKDEP) does not endorse the use of the MDRD equation for patients that are not between the ages of 18 and 70, are , have extremes of body size, muscle mass, or nutritional status, or are non- or non-. According to the National Kidney Foundation, irrespective of diagnosis, the stage of the disease is based on the level of kidney function: Stage Description GFR(mL/min/1.73 m(2)) 1 Kidney damage with normal or decreased GFR 90 2 Kidney damage with mild decrease in GFR 60-89 3 Moderate decrease in GFR 30-59 4 Severe decrease in GFR 15-29 5 Kidney failure <15 (or dialysis) 54 NO CLUMPS SEEN ON SMEAR. NO CLOT IN TUBE. PLATELET COUNT CONFIRMED BY SMEAR ESTIMATE 55 Anion gap measurement may be of limited value in the presence of any alkalosis, especially in a combined acid base disorder. . 56 A metabolite of Naproxen, O-desmethylnaproxen, has been shown to interfere with the Jendrassik-[place] method for measuring total bilirubin. Samples from patients who have taken Naproxen have shown spurious elevation in total bilirubin levels. 57 Because ethnic data is not always readily available, this report includes an eGFR for both -Americans and non- Americans. The National Kidney Disease Education Program (NKDEP) does not endorse the use of the MDRD equation for patients that are not between the ages of 18 and 70, are , have extremes of body size, muscle mass, or nutritional status, or are non- or non-. According to the National Kidney Foundation, irrespective of diagnosis, the stage of the disease is based on the level of kidney function: Stage Description GFR(mL/min/1.73 m(2)) 1 Kidney damage with normal or decreased GFR 90 2 Kidney damage with mild decrease in GFR 60-89 3 Moderate decrease in GFR 30-59 4 Severe decrease in GFR 15-29 5 Kidney failure <15 (or dialysis) 58 Anion gap measurement may be of limited value in the presence of any alkalosis, especially in a combined acid base disorder. . 59 A metabolite of Naproxen, O-desmethylnaproxen, has been shown to interfere with the Jendrassik-[place] method for measuring total bilirubin. Samples from patients who have taken Naproxen have shown spurious elevation in total bilirubin levels. 60 Because ethnic data is not always readily available, this report includes an eGFR for both -Americans and non- Americans. The National Kidney Disease Education Program (NKDEP) does not endorse the use of the MDRD equation for patients that are not between the ages of 18 and 70, are , have extremes of body size, muscle mass, or nutritional status, or are non- or non-. According to the National Kidney Foundation, irrespective of diagnosis, the stage of the disease is based on the level of kidney function: Stage Description GFR(mL/min/1.73 m(2)) 1 Kidney damage with normal or decreased GFR 90 2 Kidney damage with mild decrease in GFR 60-89 3 Moderate decrease in GFR 30-59 4 Severe decrease in GFR 15-29 5 Kidney failure <15 (or dialysis) 61 CBC and smear reviewed. Normochromic normocytic anemia consistent with chronic disease or acute blood loss. REVIEWED BY WEI PERRY MD 62 Anion gap measurement may be of limited value in the presence of any alkalosis, especially in a combined acid base disorder. . 63 A metabolite of Naproxen, O-desmethylnaproxen, has been shown to interfere with the Jendrassik-Faith method for measuring total bilirubin. Samples from patients who have taken Naproxen have shown spurious elevation in total bilirubin levels. 64 Because ethnic data is not always readily available, this report includes an eGFR for both -Americans and non- Americans. The National Kidney Disease Education Program (NKDEP) does not endorse the use of the MDRD equation for patients that are not between the ages of 18 and 70, are , have extremes of body size, muscle mass, or nutritional status, or are non- or non-. According to the National Kidney Foundation, irrespective of diagnosis, the stage of the disease is based on the level of kidney function: Stage Description GFR(mL/min/1.73 m(2)) 1 Kidney damage with normal or decreased GFR 90 2 Kidney damage with mild decrease in GFR 60-89 3 Moderate decrease in GFR 30-59 4 Severe decrease in GFR 15-29 5 Kidney failure <15 (or dialysis) 65 ---- RUN DATE: 11/22/11 [facility] NMI LIVE PAGE 1 RUN TIME: 1117 Specimen Inquiry RUN USER: INTERFACE -- Name: MELONY MCCANN Status: REG REF Re11/22/11 Age/Sex: 55/F Unit#: [id number] Location: [facility] : [birth year] -- Specimen: [id number] SOUT Spec Date:11/22/11- Dr: Clay Izquierdo MD Spec Type: CYTOLOGY Received:11/22/11 Copies to: Jaylyn Dao MD SOURCE FINE NEEDLE ASPIRATION Right thyroid, US guided PATIENT INFORMATION ACTUAL COLLECTION DATE: 11/22/11 PATIENT HISTORY: Right thyroid inferior pole GROSS DESCRIPTION Ultrasound guided fine needle aspiration: Passes-2 Slides-5 alcohol fixed slide(s) and 1 air dried slide(s). Needle rinse in Cytolyt solution for cell block. IMMEDIATE INTERPRETATION RIGHT THYROID, Ultrasound guided fine needle aspiration: PASS 1-inadequate PASS 2-adequate DIAGNOSIS RIGHT THYROID, Ultrasound guided fine needle aspiration: Benign thyroid nodule: Involutional type (see comment). COMMENT The specimen demonstrates moderate watery proteinaceous fluid, a moderate amount of benign appearing follicular epithelium arranged in uniform sheets, medium sized follicles and only occasional small groups. Abundant pigmented and non-pigmented macrophages are seen in the background. No features of papillary carcinoma are seen. In this clinical setting the risk of malignancy is less than 3%. Clinical management of this thyroid nodule should be based on clinical and radiographic features as well as the above findings. A cell block was prepared in the evaluation of this specimen. Smears and cell block reveal similar findings. -- DEPARTMENT OF PATHOLOGY, [address] [place] [address] [facility] Permit #[id number] Wei Perry M.D. Director Alondra Cuevas M.D. Manager Photo Dir tia -- -- RUN DATE: 11/22/11 [facility] NMI LIVE PAGE 2 RUN TIME: 1117 Specimen Inquiry RUN USER: INTERFACE -- Name: MELONY MCCANN Status: REG REF Re11/22/11 Age/Sex: 55/F Unit#: [id number] Location: THYROID : 59 -- -- CONTINUED -- Initial evaluation performed by Carmen PRESTON([facility]) 11/22/11 Final Interpretation electronically signed by: WEI PERRY MD 11/22/11 11 17 -- -- DEPARTMENT OF PATHOLOGY, [address] [place] [address] [facility] Permit #[id number] Wei Perry M.D. Director Alondra Cuevas M.D. Manager Photo Dir tia -- 66 If is still suspected, please repeat test after 48 to 72 hours. . This test detects intact HCG only and is indicated for the early detection of . 67 Assay by chemiluminescence microparticle immunoassay on the [employer] Access2. The CA 125 assay is not recommended as a cancer screening test, but rather as an aid in monitoring response to therapy for patients with epithelial ovarian cancer. Serial testing for patients CA 125 assay values should be used in conjunction with other methods used for screening ovarian cancer. Values obtained with different methods or kits cannot be used interchangeably for patient monitoring. Results cannot be interpreted as absolute evidence of the presence or absence of malignancy. 68 Anion gap measurement may be of limited value in the presence of any alkalosis, especially in a combined acid base disorder. . 69 A metabolite of Naproxen, O-desmethylnaproxen, has been shown to interfere with the Diego- method for measuring total bilirubin. Samples from patients who have taken Naproxen have shown spurious elevation in total bilirubin levels. 70 Because ethnic data is not always readily available, this report includes an eGFR for both -Americans and non- Americans. The National Kidney Disease Education Program (NKDEP) does not endorse the use of the MDRD equation for patients that are not between the ages of 18 and 70, are , have extremes of body size, muscle mass, or nutritional status, or are non- or non-. According to the National Kidney Foundation, irrespective of diagnosis, the stage of the disease is based on the level of kidney function: Stage Description GFR(mL/min/1.73 m(2)) 1 Kidney damage with normal or decreased GFR 90 2 Kidney damage with mild decrease in GFR 60-89 3 Moderate decrease in GFR 30-59 4 Severe decrease in GFR 15-29 5 Kidney failure <15 (or dialysis) 71 ---- RUN DATE: 08/24/11 [facility] NMI LIVE PAGE 1 RUN TIME: 1457 Specimen Inquiry RUN USER: INTERFACE -- Name: RAMYMELONY Status: REG REF Re08/23/11 Age/Sex: 55/F Unit#: [id number] Location: [facility] : 59 -- Specimen: [id number] MICHEALT Spec Date:08/23/11-[address]: Jaylyn Altamirano MD Spec Type: CYTOLOGY Received:08/24/11-1139 Copies to: SOURCE ECTOCERVICAL/ENDOCERVICAL Thin Prep with Reflex HPV Test PATIENT INFORMATION ACTUAL COLLECTION DATE: 08/23/11 ? No POST MENOPAUSAL? No LAST MENSTRUAL PERIOD: 07/26/11 ADEQUACY OF SPECIMEN Satisfactory for evaluation * Transformation zone component identified * DIAGNOSIS NEGATIVE FOR INTRAEPITHELIAL LESION OR MALIGNANCY * Fungal organisms morphologically consistent with Apoorva species * This Pap test was evaluated with the assistance of the Reaxion Corporation[employer] Pap Test Imaging System. The Pap Smear is a screening test designed to aid in the detection of premalign ant and malignant conditions of the uterine cervix. It is not a diagnostic procedure a nd should not be used as the sole means of detecting cervical cancer. Both false- positiv e and false-negative reports do occur. Depending on your risk status, a Pap smear lissa uld be obtained and evaluated every one to three years. Initial evaluation performed by Niles PRUITT([facility]) 08/24/11 Final Interpretation electronically signed by: Niles PRUITT([facility]) 08/24/11 1456 -- -- DEPARTMENT OF PATHOLOGY, [address] [place] [address] [facility] Permit #[id number] Wei Perry M.D. Director Alondra Cuevas M.D. Manager Photo Dir tia -- 72 Anion gap measurement may be of limited value in the presence of any alkalosis, especially in a combined acid base disorder. . 73 A metabolite of Naproxen, O-desmethylnaproxen, has been shown to interfere with the Jencharyik-Faith method for measuring total bilirubin. Samples from patients who have taken Naproxen have shown spurious elevation in total bilirubin levels. 74 Because ethnic data is not always readily available, this report includes an eGFR for both -Americans and non- Americans. The National Kidney Disease Education Program (NKDEP) does not endorse the use of the MDRD equation for patients that are not between the ages of 18 and 70, are , have extremes of body size, muscle mass, or nutritional status, or are non- or non-. According to the National Kidney Foundation, irrespective of diagnosis, the stage of the disease is based on the level of kidney function: Stage Description GFR(mL/min/1.73 m(2)) 1 Kidney damage with normal or decreased GFR 90 2 Kidney damage with mild decrease in GFR 60-89 3 Moderate decrease in GFR 30-59 4 Severe decrease in GFR 15-29 5 Kidney failure <15 (or dialysis) 75 CHOLESTEROL INTERPRETATION: Desirable: Less than 200 MG/DL Borderline-High Risk: 200-239 MG/DL High-Risk: 240 MG/DL and over 76 HDL INTERPRETATION: Undesirable: High Risk: Less than 40 MG/DL Desirable: Low Risk: Greater than 60 MG/DL 77 LDL INTERPRETATION: Low Risk Optimal Level: LDL Less than 100 MG/DL Near or Above Optimal: LDL 100-129 MG/DL Borderline High Risk: LDL 130-159 MG/DL High Risk: LDL 160-189 MG/DL Very High Risk: LDL Greater than 189 MG/DL 78 ---- RUN DATE: 07/24/10 [facility] NMI LIVE PAGE 1 RUN TIME: 1253 Specimen Inquiry RUN USER: INTERFACE -- Name: MELONY MCCANN Status: REG REF Re07/20/10 Age/Sex: 54/F Unit#: [id number] Location: [facility] : 59 -- Specimen: [id number] ANDERSON Spec Date: 07/20/[address]: Jaylyn Altamirano MD Spec Type: CYTOLOGY Received: 07/24/10 Copies to: SOURCE ECTOCERVICAL/ENDOCERVICAL Thin Prep with Reflex HPV Test PATIENT INFORMATION ACTUAL COLLECTION DATE: 07/20/10 ? No POST MENOPAUSAL? No HYSTERECTOMY? No PATIENT HISTORY: Last menstrual period 2010 ADEQUACY OF SPECIMEN Satisfactory for evaluation * Transformation zone component identified * Scanty epithelial component * DIAGNOSIS NEGATIVE FOR INTRAEPITHELIAL LESION OR MALIGNANCY * This Pap test was evaluated with the assistance of the Reaxion CorporationPrep Pap Test Imaging System. The Pap Smear is a screening test designed to aid in the detection of premalign ant and malignant conditions of the uterine cervix. It is not a diagnostic procedure a nd should not be used as the sole means of detecting cervical cancer. Both false- positiv e and false-negative reports do occur. Depending on your risk status, a Pap smear lissa uld be obtained and evaluated every one to three years. Initial evaluation performed by Niles PRUITT([facility]) 07/24/10 Final Interpretation electronically signed by: Niles PRUITT([facility]) 07/24/10 1253 -- -- DEPARTMENT OF PATHOLOGY, [address] [place] [address] [facility] Permit #[id number] Wei Perry M.D. Director Alondra Cuevas M.D. Manager Photo tia -- 79 ---- RUN DATE: 07/18/09 [facility] NMI LIVE PAGE 1 RUN TIME: 1215 Specimen Inquiry RUN USER: INTERFACE -- Name: MELONY MCCANN Status: REG REF Re07/14/09 Age/Sex: 53/F Unit#: [id number] Location: [facility] : 59 -- Specimen: [id number] MICHEALT Spec Date: 07/15/[address]: Jaylyn Altamirano MD Spec Type: CYTOLOGY Received: 07/18/09 Copies to: SOURCE ECTOCERVICAL/ENDOCERVICAL Thin Prep with Reflex HPV Test PATIENT INFORMATION ACTUAL COLLECTION DATE: 07/15/09 ? No POST MENOPAUSAL? No HYSTERECTOMY? No LAST MENSTRUAL PERIOD: 06/26/09 ADEQUACY OF SPECIMEN Satisfactory for evaluation * Transformation zone component identified * DIAGNOSIS NEGATIVE FOR INTRAEPITHELIAL LESION OR MALIGNANCY * Fungal organisms morphologically consistent with Apoorva species * This Pap test was evaluated with the assistance of the Reaxion CorporationPrep Pap Test Imaging System. The Pap Smear is a screening test designed to aid in the detection of premalign ant and malignant conditions of the uterine cervix. It is not a diagnostic procedure a nd should not be used as the sole means of detecting cervical cancer. Both false- positiv e and false-negative reports do occur. Depending on your risk status, a Pap smear lissa uld be obtained and evaluated every one to three years. Final Interpretation electronically signed by: Carmen PRESTON([facility]) 07/18/09 121 4 -- -- DEPARTMENT OF PATHOLOGY, [address] [place] [address], [place] [address] [facility] Permit #[id number] Wei Perry M.D. Director Alondra Cuevas M.D. Manager Photo Dir tia -- 80 STAPH FARHANAIS NORMAL LEEANN 81 2HR GTT FAST URINE FSTNG URINE GLU from [id number]. 2HR GTT 2HR SERUM 2HR GLUCOSE from [id number]. 2HR GTT 2HR SERUM 2HR GLUCOSE from [id number]. 82 REFERENCE RANGE: 5-15 MG/DL ABOVE FASTING 83 REFERENCE RANGE: 20-50 MG/DL ABOVE FASTING 84 Protein electrophoresis scan will follow via mail or juvenile justice specialist. 85 Negative <100 Equivocal 100 - 120 Positive >120 86 NORMALLY MENSTRUATING FEMALES: Follicular Phase:...............4-13 mIU/mL Mid-Cycle Peak:.................5-22 mIU/mL Luteal Phase:...................2-13 mIU/mL Postmenopausal Female:........20-138 mIU/mL 87 ---- RUN DATE: 03/19/08 [facility] NMI LIVE PAGE 1 RUN TIME: 1241 Specimen Inquiry RUN USER: INTERFACE -- Name: MELONY MCCANN Status: REG REF Re03/18/08 Age/Sex: 52/F Unit#: [id number] Location: [facility] : 59 -- Specimen: [id number] SOUT Spec Date: 03/18/[address]: Jaylyn Altamirano MD Spec Type: CYTOLOGY Received: 03/19/08 Copies to: SOURCE ECTOCERVICAL/ENDOCERVICAL Thin Prep with Reflex HPV Test PATIENT INFORMATION ACTUAL COLLECTION DATE: 03/18/08 ? NO POST MENOPAUSAL? No HYSTERECTOMY? No LAST MENSTRUAL PERIOD: 02/29/08 ADEQUACY OF SPECIMEN Satisfactory for evaluation * Transformation zone component identified * DIAGNOSIS NEGATIVE FOR INTRAEPITHELIAL LESION OR MALIGNANCY * This Pap test was evaluated with the assistance of the ThinPrep Pap Test Imaging System. The Pap Smear is a screening test designed to aid in the detection of premalign ant and malignant conditions of the uterine cervix. It is not a diagnostic procedure a nd should not be used as the sole means of detecting cervical cancer. Both false- positive and false-negative reports do occur. Depending on your risk status, a Pap smear lissa uld be obtained and evaluated every one to three years. Final Interpretation electronically signed by: Carmen PRESTON([facility]) 03/19/08 124 1 -- -- DEPARTMENT OF PATHOLOGY, [address] [place] [address] [facility] Permit #[id number] Wei Perry M.D. Director of Laboratories -- 88 ---- RUN DATE: 10/06/07 [facility] NMI LIVE PAGE 1 RUN TIME: 1054 Specimen Inquiry RUN USER: INTERFACE -- Name: MELONY MCCANN Status: REG REF Re10/03/07 Age/Sex: 51/F Unit#: [id number] [facility] -- Specimen: [id number] SOUT Spec Date: 10/03/[address] [facility] [address]: Mehran middleton MD Spec Type: SURGICAL P Received: 10/03/07-1010 Copies to: Poncho Torres MD SPECIMEN CECAL BIOPSY HISTORY CLINICAL INFORMATION: Patient for screening colonoscopy with positive fam sierra history (sister with colon carcinoma at 53 years old) GROSS DESCRIPTION The specimen is received in formalin labelled Melony Mccann, Cecal Biopsy, and consists of multiple, lozano, soft tissue fragments measuring 0.7 x 0.5 x 0.2 cm. Submitted entirely, one cassette. DIAGNOSIS Colon, cecum, biopsy - Focal hyperplastic change with prominent lymphoid aggregate and inflammation. Signed Electronically by: WEI PERRY MD 10/06/07 1054 -- -- DEPARTMENT OF PATHOLOGY, [address] [place] [address] [facility] Permit #[id number] Wei Perry M.D. Director of Laboratories -- 89 07/05/07 HAYDE.BMT FT3 WANTED 90 07/05/07 HAYDE.BMT MANUAL DIFF WANTED 91 07/05/07 HAYDE.BMT FT4 WANTED 92 Siemens (DPC) ICMA Methodology 93 ---- RUN DATE: 03/17/07 [facility] NMI LIVE PAGE 1 RUN TIME: 1041 Specimen Inquiry RUN USER: INTERFACE [id number] MELONY MCCANN 51/F <REG REF 03/12> ([id number]) Jaylyn Moulton MD -- Specimen: [id number] ANDERSON Spec Date: 03/12/[address]: Jaylyn Altamirano MD Spec Type: CYTOLOGY Received: 03/13/07-1217 Copies to: SOURCE ECTOCERVICAL/ENDOCERVICAL Thin Prep with Reflex HPV Test PATIENT INFORMATION ACTUAL COLLECTION DATE: 03/12/07 ? NO POST MENOPAUSAL? No HYSTERECTOMY? No LAST MENSTRUAL PERIOD: 02/22/07 ADEQUACY OF SPECIMEN Satisfactory for evaluation * Transformation zone component identified * DIAGNOSIS NEGATIVE FOR INTRAEPITHELIAL LESION OR MALIGNANCY * This Pap test was evaluated with the assistance of the [employer] Pap Test Imaging System. The Pap Smear is a screening test designed to aid in the detection of premalign ant and malignant conditions of the uterine cervix. It is not a diagnostic procedure a nd should not be used as the sole means of detecting cervical cancer. Both false- positive and false-negative reports do occur. Depending on your risk status, a Pap smear lissa uld be obtained and evaluated every one to three years. Final Interpretation electronically signed by: Niles PRUITT(ASCP) 03/17/07 1040 -- -- DEPARTMENT OF PATHOLOGY, [address] [place] [address] [facility] Permit #[id number] Wei Perry M.D. Director of Laboratories Cira Garcia II, M.D . Pathologist -- 94 LEFT ARM PIT 95 FEW [COAG NEG STAPHYLOCOCCUS] - MULTIPLE VARIANTS; NO FURTHER WORKUP COAG NEG STAPHYLOCOCCUS 96 ---- RUN DATE: 01/16/06 [facility] NMI TEST PAGE 1 RUN TIME: 1253 Specimen Inquiry RUN USER: INTERFACE [id number] MELONY MCCANN 50/F <REG REF 01/14> ([id number]) Poncho Kumar MD. -- Specimen: [id number] SOUT Spec Date: 01/15/[address]: Kaye Torres rd, MD. Spec Type: SURGICAL P Received: 01/15/06104 Copies to: SPECIMEN SEBACEOUS CYST HISTORY PRE-OP DIAGNOSIS: Sebaceous cyst CLINICAL INFORMATION: Duration several years, watching for any changes, p ast week increased size with redness, swelling, drainage GROSS DESCRIPTION The specimen is received in formalin labelled "Melony Mccann" unlabelled as to content and consists of a single 0.3 cm. yellow-white nodule. Total, one block. DIAGNOSIS Skin, site not specified, excision - Keratinaceous material consistent with epidermal cyst contents. Signed Electronically signed CIRA GARCIA MD 01/16/06 -- -- DEPARTMENT OF PATHOLOGY, [address] [place] [address] [facility] Permit #[id number] Cira Garcia II, M.D. Director Demarcus Caldwellctor -- THESE RESULT HAD BEEN SITTING UNDER THE PARTIALLY REVIEWED CATAGORY. 98 Classification: Desirable . 99 CALCULATED LDL APPROXIMATES THE VALUE OF A DIRECT LDL MEASUREMENT. Classification: Near or above optimal . 100 Anion gap measurement may be of limited value in the presence of any alkalosis, especially in a combined acid base disorder. . Procedures Date CPT Code Description Status Comment 03/19/2018 00006 I & D Abscess Simple Completed 11/14/2017 60801 Remove Impact Cerumen Completed Irrigation/Lavage Unilateral 03/22/2017 Mammogram Completed (-) R breast Gets [id number] mammos and yearly breast MRIs through [facility] 12/28/2016 Colonoscopy Completed 12/31: 1 HP repeat in 5yrs 2012: normal 10/05/2014 82164 X-Ray Knee,Ap&Lateral Oblique Completed Views 05/08/2013 60046 Destruction Premalignant Skin Completed Lesions 04/23/2013 50676 Remove Impact Cerumen Requiring Completed Instrument, Unilateral 02/28/2013 75207 Oximetry, Single Completed 08/27/2012 62974 Dexa Bone Density Study One Or Completed More Sites Axial Skeleton 07/20/2010 61125 X-Ray, Hip (Both) Incl Ap Pelvis Completed 01/14/2006 82221 Excise Benign Lesion <.6CM Completed Trunk/Arm/Leg 01/07/2006 80807 Allergy Injections-Multiple Completed 01/07/2006 99511 Allergy Injections-Multiple Completed 12/24/2005 58270 Allergy Injections-Multiple Completed 12/24/2005 32449 Allergy Injections-Multiple Completed 11/19/2005 70457 Allergy Injections-Multiple Completed 11/19/2005 39220 Allergy Injections-Multiple Completed 11/05/2005 28386 Allergy Injections-Multiple Completed 11/05/2005 56713 Allergy Injections-Multiple Completed 10/22/2005 02455 Allergy Injections-Multiple Completed 10/22/2005 11234 Allergy Injections-Multiple Completed 08/27/2005 66789 Allergy Injections-Multiple Completed 08/27/2005 40964 Allergy Injections-Multiple Completed 07/30/2005 34181 Allergy Injections-Multiple Completed 07/30/2005 77144 Allergy Injections-Multiple Completed 07/02/2005 04356 Allergy Injections-Multiple Completed 07/02/2005 07221 Allergy Injections-Multiple Completed 06/01/2005 66014 Allergy Injections-Multiple Completed 06/01/2005 18170 Allergy Injections-Multiple Completed 05/18/2005 25188 Allergy Injections-Multiple Completed 05/18/2005 71982 Allergy Injections-Multiple Completed 05/04/2005 76276 Allergy Injections-Multiple Completed 05/04/2005 87823 Allergy Injections-Multiple Completed 04/19/2005 36063 Allergy Injections-Multiple Completed 04/06/2005 28012 Allergy Injections-Multiple Completed 04/06/2005 13602 Allergy Injections-Multiple Completed 03/23/2005 54467 Allergy Injections-Multiple Completed 03/23/2005 40985 Allergy Injections-Multiple Completed 03/09/2005 73155 Allergy Injections-Multiple Completed 03/09/2005 54748 Allergy Injections-Multiple Completed 02/23/2005 49161 Allergy Injections-Multiple Completed 02/23/2005 10006 Allergy Injections-Multiple Completed 02/07/2005 96612 Allergy Injections-Multiple Completed 02/07/2005 97011 Allergy Injections-Multiple Completed 01/24/2005 25571 Allergy Injections-Multiple Completed 01/24/2005 70280 Allergy Injections-Multiple Completed 01/10/2005 97199 Allergy Injections-Multiple Completed 01/10/2005 90788 Allergy Injections-Multiple Completed 12/27/2004 53143 Allergy Injections-Multiple Completed 12/27/2004 90827 Allergy Injections-Multiple Completed 12/13/2004 04527 Allergy Injections-Multiple Completed 12/13/2004 38253 Allergy Injections-Multiple Completed 11/22/2004 73600 Allergy Injections-Multiple Completed 11/22/2004 64959 Allergy Injections-Multiple Completed 11/08/2004 11030 Allergy Injections-Multiple Completed 11/08/2004 03581 Allergy Injections-Multiple Completed 10/24/2004 69408 Allergy Injections-Multiple Completed 10/24/2004 81970 Allergy Injections-Multiple Completed 10/09/2004 12503 Allergy Injections-Multiple Completed 10/09/2004 74681 Allergy Injections-Multiple Completed 09/25/2004 29879 Allergy Injections-Multiple Completed 09/25/2004 49766 Allergy Injections-Multiple Completed 09/13/2004 87889 Allergy Injections-Multiple Completed 09/13/2004 82522 Allergy Injections-Multiple Completed 08/28/2004 90225 Allergy Injections-Multiple Completed 08/28/2004 78804 Allergy Injections-Multiple Completed 08/22/2004 63478 Electrocardiogram Complete Completed 08/15/2004 76700 Allergy Injections-Multiple Completed 08/15/2004 40951 Allergy Injections-Multiple Completed 07/31/2004 16743 Allergy Injections-Multiple Completed 07/31/2004 22174 Allergy Injections-Multiple Completed 07/17/2004 10543 Allergy Injections-Multiple Completed 07/17/2004 67009 Allergy Injections-Multiple Completed 06/30/2004 19712 Allergy Injections-Multiple Completed 06/30/2004 32793 Allergy Injections-Multiple Completed 05/12/2004 31027 Allergy Injections-Multiple Completed 05/12/2004 03476 Allergy Injections-Multiple Completed 04/28/2004 38069 Allergy Injections-Multiple Completed 04/28/2004 64827 Allergy Injections-Multiple Completed 04/14/2004 73938 Allergy Injections-Multiple Completed 04/14/2004 23848 Allergy Injections-Multiple Completed 03/17/2004 94391 Allergy Injections-Multiple Completed 03/17/2004 38169 Allergy Injections-Multiple Completed 03/03/2004 36078 Allergy Injections-Multiple Completed 03/03/2004 82587 Allergy Injections-Multiple Completed 02/18/2004 76172 Allergy Injections-Multiple Completed 02/18/2004 46795 Allergy Injections-Multiple Completed 02/04/2004 87625 Allergy Injections-Multiple Completed 02/04/2004 53505 Allergy Injections-Multiple Completed 01/20/2004 33783 Allergy Injections-Multiple Completed 01/20/2004 22240 Allergy Injections-Multiple Completed 01/06/2004 49808 Allergy Injections-Multiple Completed 01/06/2004 57859 Allergy Injections-Multiple Completed 12/24/2003 10401 Allergy Injections-Multiple Completed 12/24/2003 87323 Allergy Injections-Multiple Completed 11/01/2003 07122 Allergy Injections-Multiple Completed 11/01/2003 15152 Allergy Injections-Multiple Completed 10/21/2003 40727 Tympanometry Completed 10/18/2003 84085 Allergy Injections-Multiple Completed 10/18/2003 82813 Allergy Injections-Multiple Completed 10/15/2003 45611 Tympanometry Completed 10/04/2003 49048 Allergy Injections-Multiple Completed 10/04/2003 43943 Allergy Injections-Multiple Completed 09/06/2003 40581 Allergy Injections-Multiple Completed 09/06/2003 17418 Allergy Injections-Multiple Completed 08/23/2003 62173 Allergy Injections-Multiple Completed 08/23/2003 45708 Allergy Injections-Multiple Completed 08/09/2003 96666 Allergy Injections-Multiple Completed 08/09/2003 59365 Allergy Injections-Multiple Completed 07/26/2003 86316 Allergy Injections-Multiple Completed 07/26/2003 26797 Allergy Injections-Multiple Completed 07/09/2003 79427 Allergy Injections-Multiple Completed 07/09/2003 74408 Allergy Injections-Multiple Completed 06/14/200383215 Allergy Injections-Multiple Completed 06/14/2003 34302 Allergy Injections-Multiple Completed 06/02/200330440 Allergy Injections-Multiple Completed 06/02/2003 56413 Allergy Injections-Multiple Completed 05/17/2003 37284 Allergy Injections-Multiple Completed 05/17/2003 43140 Allergy Injections-Multiple Completed 05/03/2003 46747 Allergy Injections-Multiple Completed 05/03/2003 26555 Allergy Injections-Multiple Completed 04/19/2003 57032 Allergy Injections-Multiple Completed 04/19/2003 46241 Allergy Injections-Multiple Completed 04/05/2003 52018 Allergy Injections-Multiple Completed 03/22/200393092 Allergy Injections-Multiple Completed 03/12/2003 15340 ECG Monitor/Review & Completed Interpretation, W/Visual Superimpos Scan 03/12/2003 87960 ECG Monitor/Recording W/Scanning Completed 03/08/200383712 Allergy Injections-Multiple Completed 03/05/2003 13306 Electrocardiogram Complete Completed 02/22/200346595 Allergy Injections-Multiple Completed 02/11/2003 68719 Allergy Injections-Multiple Completed 01/25/2003 38757 Allergy Injections-Multiple Completed 01/11/2003 97284 Allergy Injections-Multiple Completed 12/25/200240552 Allergy Injections-Multiple Completed Encounters Type Date Location Provider CPT E/M Dx Office Visit 03/19/2018 1:45p Main Office Poncho Torres M.D. 05070 H00.011 Office Visit 11/29/2017 9:40a Main Office Valeri Maldonado P.AKatie 89708 Z00.01 Z11.1 Z13.220 R53.83 L65.9 H02.823 Z23 J30.1 Office Visit 11/14/2017 3:20p Main Office Valeri Maldonado P.A. 49261 H61.21 J30.89 Office Visit 10/14/2017 9:20a Main Office Chen Montes De OcaAKatie 73633 R05 J06.9 F41.9 Office Visit 07/20/2017 10:00a Main Office Camilo Montes De Oca.AKatie 15285 B34.0 R05 Office Visit 07/17/2017 9:15a Main Office Poncho Torres M.D. 26217 J11.89 Office Visit 12/17/2016 12:55p Main Office Poncho Torres M.D. 88435 H00.011 Office Visit 12/05/2016 4:30p Main Office Gera Mauricio D.O. 75924 Z11.1 Z02.1 Z23 Z41.8 Office Visit 08/31/2016 10:15a Main Office Cira Rob M.D. 93716 H10.89 Office Visit 07/07/2016 9:30a Main Office Cira Rob M.D. 43093 H11.821 H00.022 Office Visit 06/19/2016 4:15p Main Office Poncho Torres M.D. 75199 F41.9 M54.5 Z23 Office Visit 01/18/2016 3:00p [place] [address] F41.9 Z85.3 Office Visit 11/18/2015 1:45p Main Office Poncho Torres M.D. 45648 F41.9 G47.00 G47.50 Z11.1 Z13.220 Office Visit 10/01/2015 10:00a Main Office Poncho Torres M.D. 60527 F41.9 G47.00 G47.50 Office Visit 02/14/2015 9:00a Main Office Deb Ruvalcaba RPA-C 56064 300.00 780.52 V65.49 V04.81 V07.1 Office Visit 12/23/2014 1:45p [place] [address] 787.01 300.00 780.52 246.9 287.5 331.83 Office Visit 12/15/2014 9:30a [place] [address] V70.0 V70.9 300.00 246.9 697.0 719.45 233.0 V72.62 Office Visit 10/05/2014 2:45p Main Office Poncho Torres M.D. 33047 719.46 Office Visit 07/24/2014 10:00a Main Office Deb Ruvalcaba RPA-C 23342 300.00 372.14 Office Visit 03/18/2014 11:30a [place] [address] 697.0 Office Visit 12/04/2013 4:00p Main Office Gera Mauricio D.O. 60311 053.9 Office Visit 11/12/2013 10:15a [place] [address] V70.0 V70.9 V10.3 625.0 799.81 246.9 719.45 702.0 795.89 Office Visit 04/28/2013 1:30p Main Office Poncho Torres M.D. 00186 238.2 Office Visit 04/23/2013 2:15p [place] [address] 719.45 V10.3 782.8 389.9 380.4 Office Visit 02/28/2013 8:45a Main Office Valeri Maldonado, P.A. 62358 786.09 493.90 V04.81 V07.2 Office Visit 11/27/2012 3:00p [place] [address] 719.45 724.5 Office Visit 10/16/2012 1:30p [place] [address] 782.8 Office Visit 09/10/2012 10:45a [place] [address] 701.8 V10.3 275.42 Office Visit 09/02/2012 11:00a [place] [address] 701.8 Office Visit 08/27/2012 9:30a [place] [address] V70.0 V10.3 807.03 268.9 246.9 477.9 625.0 627.9 782.0 V82.81 V75.9 Office Visit 07/23/2012 11:00a [place] [address] 807.03 268.9 789.03 E880.9 Office Visit 07/03/2012 3:45p [place] [address] V10.3 789.03 246.9 719.41 V65.49 Office Visit 04/21/2012 11:00a Main Office Poncho Torres M.D. 99887 477.9 372.14 V04.81 V07.2 Office Visit 12/26/2011 4:45p Main Office Miquel Montes De Oca 64671 V70.0 V70.3 Office Visit 12/06/2011 3:00p [place] [address] 682.8 611.9 Office Visit 12/04/2011 11:30a [place] [address] 682.8 611.9 996.69 Office Visit 11/01/2011 10:45a [place] [address] 787.91 787.0 233.0 Office Visit 09/06/2011 9:45a [place] [address] 300.00 233.0 790.6 Office Visit 08/23/2011 11:00a [place] [address] 233.0 300.00 V72.31 241.1 V70.0 Office Visit 08/20/2011 12:55p Main Office Poncho Torres M.D. 61946 233.0 Office Visit 05/17/2011 2:30p [place] [address] 726.19 611.9 Office Visit 01/25/2011 11:30a [place] [address] 300.00 782.8 Office Visit 11/21/2010 10:15a [place] [address] 372.00 300.00 799.81 Office Visit 11/02/2010 1:40p Main Office Miquel Montes De Oca 84145 V70.3 Office Visit 09/18/2010 9:20a Main Office Miquel Montes De Oca 97275 465.9 381.01 784.49 477.9 466.0 Office Visit 07/20/2010 1:45p [place] [address] 719.45 V70.0 300.00 799.81 V72.31 709.9 719.41 626.2 625.3 V16.3 V16.0 241.1 V77.91 Office Visit 02/09/2010 3:45p [place] [address] 300.00 477.9 709.9 Office Visit 12/20/2009 10:45a [place] [address] 300.00 V70.0 719.41 V74.1 Office Visit 11/23/2009 3:00p Main Office Miquel Montes De Oca 70602 719.41 Office Visit 09/26/2009 1:15p Main Office Poncho Torres M.D. 12783 719.41 Office Visit 07/14/2009 3:30p [place] [address] 719.41 704.8 240.9 626.4 V72.31 V76.2 Office Visit 06/02/2009 9:30a [place] [address] 719.41 626.4 704.8 240.9 Office Visit 01/28/2009 3:00p Main Office Poncho Torres M.D. 39595 709.9 719.45 Office Visit 12/13/2008 1:45p Main Office Poncho Torres M.D. 28679 709.9 Office Visit 10/07/2008 2:45p [place] [address] 723.1 782.0 626.2 278.00 Office Visit 08/31/2008 4:30p [place] [address] 372.00 Office Visit 07/01/2008 2:45p [place] [address] 782.0 723.1 626.2 719.46 V82.81 Office Visit 04/27/2008 2:10p Main Office Cira Rob M.D. 95731 373.12 Office Visit 04/08/2008 3:30p [place] [address] 723.1 782.0 719.46 626.2 Office Visit 03/18/2008 9:15a [place] [address] V76.19 V76.2 626.2 729.5 241.1 493.10 477.9 782.0 V04.81 V07.2 Office Visit 02/27/2008 2:00p Main Office Poncho Torres M.D. 63047 477.9 465.9 Office Visit 11/26/2007 3:00p Main Office Poncho Torres M.D. 71582 729.5 Office Visit 08/06/2007 8:30a Main Office Poncho Torres M.D. 58771 V16.0 726.5 Office Visit 03/12/2007 9:30a [place] [address] 782.0 241.1 611.8 477.9 493.90 272.0 V72.31 V06.1 V07.2 Office Visit 02/11/2007 11:15a [place] [address] 478.79 477.9 493.90 Office Visit 01/13/2007 2:45p Main Office Poncho Torres M.D. 50546 214.1 Office Visit 08/05/2006 2:30p Main Office Poncho Torres M.D. 91472 386.11 Office Visit 03/07/2006 10:15a [place] [address] 241.1 704.9 611.8 Office Visit 01/18/2006 4:30p Main Office Poncho Torres M.D. 38727 682.2 998.59 Office Visit 01/14/2006 11:30a Main Office Poncho Torres M.D. 49290 706.2 729.5 Office Visit 09/17/2005 10:45a Main Office Poncho Torres M.D. 21907 486 493.10 Office Visit 05/17/2005 3:20p Main Office Kerline Landa, N.P. 81225 379.90 477.9 Office Visit 05/15/2005 10:00a Main Office Kerline Landa, N.P. 36393 374.89 626.8 Office Visit 04/19/2005 1:40p Main Office Kerline Landa, N.P. 20783 729.2 477.8 246.9 217 V04.81 477.9 477.0 Office Visit 02/20/2005 1:30p Main Office Poncho Torres M.D. 37587 729.2 Office Visit 01/11/2005 3:20p Main Office Kerline Landa, N.P. 41354 246.9 217 626.8 719.49 Office Visit 10/31/2004 11:20a Main Office Kerline Landa N.P. 83057 477.9 246.9 217 719.49 Office Visit 08/22/2004 1:00p Main Office Kerline Landa N.P. 48928 626.8 217 246.9 477.0 427.69 V72.31 Office Visit 03/31/2004 1:00p Main Office Kerline Landa N.P. 81062 389.00 217 621.9 477.8 Office Visit 10/21/2003 2:30p Main Office florencia 66957 388.70 477.0 Office Visit 10/15/2003 4:00p Main Office Kerline Landa, N.P. 75031 477.9 381.01 389.00 625.3 Office Visit 05/11/2003 9:40a Main Office Kerline Landa, N.P. 15889 373.11 785.1 Office Visit 04/16/2003 10:20a Main Office Kerline Landa, N.P. 96333 626.4 427.9 Office Visit 03/26/2003 1:10p Main Office Cira Rob M.D. 87236 427.69 Office Visit 03/05/2003 2:25p Main Office Kerline Landa, N.P. 80277 427.9 626.4 241.0 216.5 Office Visit 02/19/2003 1:40p Main Office Kerline Landa, N.P. 01557 780.79 241.0 Plan of Care Future Appointment(s):12/05/2018 8:00 am - Valeri Maldonado, P.A. at [id number] - Poncho Torres M.D.H00.011 Hordeolum externum right upper eyelidComments:Discussed I&D and at her request, I drained purulent material by entering on the lat aspect w/ a25G needle bevel up, then applied light pressure w/ drainage of purulent material, dec in swelling and improvement in pain. Advised hot moist compresses every few hours until resolution.
--- OUTSIDE RECORDS SUMMARY | 2018-03-21 15:56 | XMS REPORT ---
:1955 Author Organization [facility] Address [address] [place] [address] Care Team Providers Name Role Phone Becky Chambers Unavailable Unavailable PROBLEMS Type Condition ICD9-CM MVM45-SL Onset Condition SNOMED Code Code Code Dates Status Problem Family history of Z80.0 Active 934415312 malignant neoplasm of digestive organs Problem Hypoactive sexual F52.0 Active 495086590 desire disorder Problem Postmenopausal N95.2 Active 16782103 atrophic vaginitis Problem nursing home (current) Z79.810 Active 580726644651947 use of selective estrogen receptor modulators (SERMs) Problem Malignant neoplasm C50.919 Active 838842359 of unspecified site of unspecified female breast Problem 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, unspecified Problem Postmenopausal N95.0 Active 27191327 bleeding ALLERGIES No Information ENCOUNTERS Encounter Location Date Diagnosis [facility] [address] Nov, OBGYN [place], [place] [id number] [facility] Nov, OBGYN [place] [id number] [facility] 103 Mar, [place] [id number] [facility] 103 Mar, OBGYN [place] [id number] [facility] 103 Nov, OBG[place] [id number] [facility] 103 Nov, [facility] [place], [place] [id number] (routine) without abnormal findings Z01.419 ; nursing home (current) use of selective estrogen receptor modulators (SERMs) Z79.810 ; Encounter for screening for malignant neoplasm of colon Z12.11 ; Malignant neoplasm of unspecified site of unspecified female breast C50.919 ; Hypoactive sexual desire disorder F52.0 ; Family history of malignant neoplasm of digestive organs Z80.0 ; Postmenopausal atrophic vaginitis N95.2 and Family history of malignant neoplasm of ovary Z80.41 [facility] 103 Nov, nursing home (current) use of [facility] selective estrogen receptor [place], [place] [id number] modulators (SERMs) Z79.810 and Abnormal findings on diagnostic imaging of other specified body structures R93.8 [facility] 103 October, OBGYN [place] [id number] [facility] 103 October, OBGYN [place] [id number] [facility] 103 October, OBG[place] [id number] [facility] 103 October, OBGYN [place] [id number] [facility] 103 October, Encounter for gynecological OBGYN [facility] examination (general) [place], [place] [id number] (routine) without abnormal findings Z01.419 ; intermediate designer (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) use of selective estrogen receptor modulators (SERMs) Z79.810 ; Encounter for screening for malignant neoplasm of colon Z12.11 ; Encounter for screening for malignant neoplasm of cervix Z12.4 and Malignant neoplasm of unspecified site of unspecified female breast C50.919 [facility] 103 October, intermediate designer (current) use of [facility] selective estrogen receptor [place], [place] [id number] modulators (SERMs) Z79.810 and Malignant neoplasm of unspecified site of unspecified female breast C50.919 [facility] Jul, [place], [place] [id number] [place] [facility] [address] [place] [address] [facility], [address] [place], [place] [id number] [facility] [address] [place] [address] [facility] Apr, nursing home (current) use of [facility] [address] [place], selective estrogen receptor [place] [id number] modulators (SERMs) Z79.810 [facility] Apr, intermediate designer (current) use of [facility] selective estrogen receptor [place], [place] [address] modulators (SERMs) Z79.810 [facility] Feb, [place], [place] [id number] [facility] 103 October, Postmenopausal bleeding [facility] N95.0 ; intermediate designer (current) [place], [place] [id number] use of selective estrogen receptor modulators (SERMs) Z79.810 and Postmenopausal atrophic vaginitis N95.2 [facility] 103 Jul, Postmenopausal bleeding [facility] N95.0 ; intermediate designer (current) [place], [place] [id number] use of selective estrogen receptor modulators (SERMs) Z79.810 ; Abnormal findings on diagnostic imaging of urinary organs R93.4 and Postmenopausal atrophic vaginitis N95.2 [facility] [address] [facility], Jul, [facility] [id number] [facility] 103 Jul, Postmenopausal bleeding [facility] N95.0 ; intermediate designer (current) [place], [place] [id number] use of selective estrogen receptor modulators (SERMs) Z79.810 and Abnormal findings on diagnostic imaging of urinary organs R93.4 [facility] 103 May, [place] [id number] [facility] 103 May, Postmenopausal bleeding [facility] N95.0 ; intermediate designer (current) [place], [place] [id number] use of selective estrogen receptor modulators (SERMs) Z79.810 ; Abnormal findings on diagnostic imaging of urinary organs R93.4 and Noninflammatory disorder of vulva and perineum, unspecified N90.9 [facility] 103 May, [facility] N95.0 and Abnormal findings [place], [place] [id number] on diagnostic imaging of other specified body structures R93.8 [facility] 103 May, Other specified [facility] noninflammatory disorders [place], [place] [id number] of vagina N89.8 ; Noninflammatory disorder of vulva and perineum, unspecified N90.9 ; Postmenopausal bleeding N95.0 and intermediate designer (current) use of selective estrogen receptor modulators (SERMs) Z79.810 [facility] 103 Aug, Menometrorrhagia 626.2 OBGYN [place], [place] [id number] [facility] 103 Jul, Menometrorrhagia 626.2 OBN [place], [place] [id number] [facility] 103 Jun, Abdominal pain, right lower [facility] quadrant 789.03 ; [place], [place] [id number] Menometrorrhagia 626.2 and Candidiasis of vagina 112.1 IMMUNIZATIONS No Known Immunizations SOCIAL HISTORY Never Assessed REASON FOR REFERRAL FUNCTIONAL STATUS PLAN OF CARE VITAL SIGNS MEDICATIONS Unknown Medications PROCEDURES No Known procedures RESULTS No Results REASON FOR VISIT Update Demographics - Personal Info Insurance Providers [facility] Health Member Patient Patient Patient Patient Patient Subscriber Subscriber Subscriber Group Insurance Plan Plan Plan Plan ID Relationship Address Phone Name Date of ID Name Date of No Type Insurance Insurance Insurance Coverage to Subscriber Address Phone Name Dates [facility] [phone] [facility] [place] [id number] [place] [address] [place] [facility] [address] MEDICAL (GENERAL) HISTORY Type Description Date Medical History asthma Medical History lobular stage III breast CA - dx age 56 (08/2011) Surgical History left masectomy (goes through [facility]) 09/2011 Surgical History US-guided hysteroscopy D&C. 07/27/15 Hospitalization History childbirth x 3 1996 Hospitalization History see above
--- OUTSIDE RECORDS SUMMARY | 2018-03-21 15:57 | XMS REPORT ---
:1955 Author Organization [facility] Address [address] [place] [address] Care Team Providers Name Role Phone Becky Chambers Unavailable Unavailable PROBLEMS Type Condition ICD9-CM UMM44-VB Onset Condition SNOMED Code Code Code Dates Status Problem Family history of Z80.0 Active 877137290 malignant neoplasm of digestive organs Problem Hypoactive sexual F52.0 Active 914316259 desire disorder Problem Postmenopausal N95.2 Active 81975836 atrophic vaginitis Problem correction (current) Z79.810 Active 703460195835050 use of selective estrogen receptor modulators (SERMs) Problem Malignant neoplasm C50.919 Active 912263867 of unspecified site of unspecified female breast Problem Noninflammatory N90.9 Active 655769121 disorder of vulva and perineum, unspecified Problem Postmenopausal N95.0 Active 84727949 bleeding ALLERGIES No Information ENCOUNTERS Encounter Location Date Diagnosis [facility] [address] Nov, OBGYN [place], [place] [id number] [facility] 103 Nov, OBGYN [place], [place] [id number] [facility] 103 Mar, OBG[place] [id number] [facility] 103 Mar, OBGYN [place] [id number] [facility] 103 Nov, OBGYN [place] [id number] [facility] 103 Nov, Encounter for gynecological [facility] examination (general) [place], [place] [id number] (routine) without abnormal findings Z01.419 ; correction (current) use of selective estrogen receptor modulators (SERMs) Z79.810 ; Encounter for screening for malignant neoplasm of colon Z12.11 ; Malignant neoplasm of unspecified site of unspecified female breast C50.919 ; Hypoactive sexual desire disorder F52.0 ; Family history of malignant neoplasm of digestive organs Z80.0 ; Postmenopausal atrophic vaginitis N95.2 and Family history of malignant neoplasm of ovary Z80.41 [place] [facility] 103 Nov, correction (current) use of [facility] selective estrogen receptor [place], [place] [address] modulators (SERMs) Z79.810 and Abnormal findings on diagnostic imaging of other specified body structures R93.8 [place] [facility] 103 October, OBGYN [place] [id number] [place] [facility] 103 October, OBGYN [place] [id number] [place] [facility] 103 October, OBGYN [place] [id number] [place] [facility] 103 October, OBGYN [place] [id number] [place] [facility] 103 October, Encounter for gynecological OBGYN [facility] examination (general) [place], [place] [id number] (routine) without abnormal findings Z01.419 ; manager terminal (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) use of selective estrogen receptor modulators (SERMs) Z79.810 ; Encounter for screening for malignant neoplasm of colon Z12.11 ; Encounter for screening for malignant neoplasm of cervix Z12.4 and Malignant neoplasm of unspecified site of unspecified female breast C50.919 [place] [facility] 103 October, manager terminal (current) use of [facility] selective estrogen receptor [place], [place] [address] modulators (SERMs) Z79.810 and Malignant neoplasm of unspecified site of unspecified female breast C50.919 [place] [facility] 103 Jul, [place], [place] [id number] [place] [facility] [address] [place] [address] [facility], [address] [place], [place] [id number] [facility] [address] [place] [address] [facility] Apr, correction (current) use of [address] [place], selective estrogen receptor [place] [id number] modulators (SERMs) Z79.810 [place] [facility] 103 Apr, manager terminal (current) use of [facility] selective estrogen receptor [place], [place] [address] modulators (SERMs) Z79.810 [place] [facility] Feb, [place], [place] [id number] [place] [facility] 103 October, Postmenopausal bleeding [facility] N95.0 ; manager terminal (current) [place], [place] [id number] use of selective estrogen receptor modulators (SERMs) Z79.810 and Postmenopausal atrophic vaginitis N95.2 [facility] 103 Jul, Postmenopausal bleeding [facility] N95.0 ; manager terminal (current) [place], [place] [id number] use of selective estrogen receptor modulators (SERMs) Z79.810 ; Abnormal findings on diagnostic imaging of urinary organs R93.4 and Postmenopausal atrophic vaginitis N95.2 [place] [facility] [address] [place], Jul, [facility] [id number] [place] [facility] 103 Jul, Postmenopausal bleeding [facility] N95.0 ; manager terminal (current) [place], [place] [id number] use of selective estrogen receptor modulators (SERMs) Z79.810 and Abnormal findings on diagnostic imaging of urinary organs R93.4 [place] [facility] 103 May, [place] [id number] [place] [facility] 103 May, Postmenopausal bleeding [facility] N95.0 ; manager terminal (current) [place], [place] [id number] use of selective estrogen receptor modulators (SERMs) Z79.810 ; Abnormal findings on diagnostic imaging of urinary organs R93.4 and Noninflammatory disorder of vulva and perineum, unspecified N90.9 [facility] 103 May, Postmenopausal bleeding [facility] N95.0 and Abnormal findings [place], [place] [id number] on diagnostic imaging of other specified body structures R93.8 [facility] 103 May, Other specified [facility] noninflammatory disorders [place], [place] [id number] of vagina N89.8 ; Noninflammatory disorder of vulva and perineum, unspecified N90.9 ; Postmenopausal bleeding N95.0 and manager terminal (current) use of selective estrogen receptor modulators (SERMs) Z79.810 [facility] 103 Aug, Menometrorrhagia 626.2 OBGYN [place] [id number] [facility] 103 Jul, Menometrorrhagia 626.2 OBN [place] [id number] [facility] 103 Jun, Abdominal pain, right lower [facility] quadrant 789.03 ; [place], [place] [id number] Menometrorrhagia 626.2 and Candidiasis of vagina 112.1 IMMUNIZATIONS No Known Immunizations SOCIAL HISTORY Never Assessed REASON FOR REFERRAL FUNCTIONAL STATUS PLAN OF CARE VITAL SIGNS MEDICATIONS Unknown Medications PROCEDURES No Known procedures RESULTS No Results REASON FOR VISIT Update Demographics - Additional Info Insurance Providers [facility] Health Member Patient Patient Patient Patient Patient Subscriber Subscriber Subscriber Group Insurance Plan Plan Plan Plan ID Relationship Address Phone Name Date of ID Name Date of No Type Insurance Insurance Insurance Coverage to Subscriber Address Phone Name Dates [facility] [phone] [facility] [place] [id number] [place] [address] [place] [facility] [address] MEDICAL (GENERAL) HISTORY Type Description Date Medical History asthma Medical History lobular stage III breast CA - dx age 56 (08/2011) Surgical History left masectomy (goes through [facility]) 09/2011 Surgical History US-guided hysteroscopy D&C. 07/27/15 Hospitalization History childbirth x 3 1996 Hospitalization History see above
[2018-03-21 16:16] VITALS: BP 119/66
--- NOTE | 2018-03-21 16:37 | RAD ---
INDICATION: Right wrist injury. TECHNIQUE: 3 views of the right wrist were obtained. FINDINGS: There is a transverse fracture of the radial metaphysis. The fracture fragments are slightly impacted. There is mild dorsal angulation of the distal fragment relative the proximal fragment. No other fractures are seen. IMPRESSION: TRANSVERSE SLIGHTLY IMPACTED, SLIGHTLY ANGULATED FRACTURE OF THE DISTAL RADIUS.
--- NOTE | 2018-03-21 16:40 | UC ---
Upper Extremity HPI - HPI Summary HPI Summary: Patient presents to the urgent care with her . Patient states normal o' clock U she was hiking when she slipped falling on her right outstretched arm. Patient is right-hand dominant. Patient did not strike her head. Did not injure anything else. No blood HEENT. Patient denies any neck or back pain. Patient denies any elbow or shoulder pain. Patient applied a sling and ice. Patient took 40 mg of Motrin. Patient without previous injury to the same wrist. 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 Onset/Duration: Sudden Onset Severity Initially: Moderate Severity Currently: Moderate Pain Intensity: 8 - Allergies/Home Medications Allergies/Adverse Reactions: Allergies Allergy/AdvReac Type Severity Reaction Status Date / Time bacitracin Allergy Rash Verified 03/21/18 16:17 [From Neosporin ([id number]-hpc-crumv)] neomycin Allergy Rash Verified 03/21/18 16:17 [From Neosporin (djn-uta-eprgf)] polymyxin B Allergy Rash Verified 03/21/18 16:17 [From Neosporin (jrq-bws-xesjh)] brazil nuts Allergy Itching Uncoded 01/03/17 13:03 Home Medications: Home Medications Ibuprofen TAB* [Motrin TAB* 400 MG] 400 mg PO Q6H PRN 03/21/18 [History Confirmed 03/21/18] PMH/Surg Hx/FS Hx/Imm Hx Previously Healthy: Yes Cancer History: Breast Cancer - 6 years remission - Surgical History Surgical History: Yes Surgery Procedure, Year, and Place: left breast mastectomy 2011 - Family History Known Family History: Positive: None, Other - non contributory - Social History Occupation: Employed Full-time Lives: With Family Alcohol Use: Occasionally Substance Use Type: None Smoking Status (MU): Never Smoked Tobacco Review of Systems Constitutional: Negative Motor: Other - right wrist pain All Other Systems Reviewed And Are Negative: Yes Physical Exam - Summary Physical Exam Summary: Vital Signs Reviewed: Yes A+Ox3, mild discomfort Eyes: Conjunctiva Clear ENT: Hearing grossly normal Neck: Positive: Supple Respiratory: Positive: No respiratory distress, No accessory muscle use Cardiovascular: CBT <2 sec, 2+ radial, 2+ ulnar Musculoskeletal Exam: no pain with palpation or ROM right shoulder, right elbow. and deformity right wrist - radial dorsum, no scaphoid pain, No pain MC or fingers Neurological: Positive: Alert, + gross sensation throughout hand + thumb up, finger cross, finger spread Psychological: Positive: Normal Response To Family Skin: Positive: no rash, no ecchymosis. skin intact Triage Information Reviewed: Yes Vital Signs: Initial Vital Signs Temp 98.8 F 03/21/18 16:03 Pulse 86 03/21/18 16:03 Resp 16 03/21/18 16:03 BP 119/66 03/21/18 16:03 Pulse Ox 98 03/21/18 16:03 Procedures - Procedure Summary Procedure Summary: verbal consent tolerated well CSM intact and unchanged following application - Splinting Right Upper Extremity Hand-Made Type: orthoglass Splint: volar Pre-Proc Neuro Vasc Exam: normal Post-Proc Neuro Vasc Exam: normal Diagnostics - Radiology No standard instances Xray Interpretation: Positive (See Comments) - Patient Name: ENRIQUE MCCANN Medical Record#: [id number] Ordering Physician: Dimple Vaughn MD Acct.#: [id number] : 1955 Age: 62 Sex: F Location: [facility] Exam Date: 03/21/18 161 ADM Status : REG ER Order Information: WRIST RIGHT 3+ VWS Accession Number: [id number] CPT: 00408 INDICATION: Right wrist injury. TECHNIQUE: 3 views of the right wrist were obtained. FINDINGS: There is a transverse fracture of the radial metaphysis. The fracture fragments are slightly impacted. There is mild dorsal angulation of the distal fragment relative the proximal fragment. No other fractures are seen. IMPRESSION: TRANSVERSE SLIGHTLY IMPACTED, SLIGHTLY ANGULATED FRACTURE OF THE DISTAL RADIUS. <Electronically signed by Yovany Chirinos MD in OV> 03/21/18 1633 Dictated By: Yovany Chirinos MD Dictated Date/Time: 03/21/18 1633 Transcribed Date/Time: 03/21/18 8583 Copy to: CC:Poncho Torres MD; Dimple Vaughn MD [facility] [facility] - [facility] [id number] [place] [id number] [place] [address] ph ([phone]) ph ([phone]) ph ([phone]) This report is only to be considered final once signed by the Provider(s) as displayed in the "< Electronically Signed by >" field (s). Absence of a signature indicates the report is in a draft status and still needs to be finalized. In the event this document was created by someone other than the signing Provider, the individual initiating the document will be listed in the "Entered by:" or "Dictated by:" menon. of Radiology Interpretation Completed By: Radiologist Upper Extremity Course/Dx - Course Course Of Treatment: Patient with mechanical slip and fall on right outstretched arm at 1 PM today. Patient without any other injuries. On exam patient with deformity to right wrist. Patient with pain in the medial aspect. X-ray consistent with a transverse impacted right radial head fracture. Patient placed in a volar splint. Ice elevate sling applied. Rings were removed and given to patient and labeled container. Patient's placed in her purse. Patient instructed to alternate Motrin and Tylenol product every 3 hours. Patient given a short course of Ames as needed. Patient's taken this medication previously without difficulty. Discussed with patient precautions regarding to Ames. Patient will follow with [facility] orthopedics. Patient requested Dr. Yune. Dr. 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 Patient states understanding. Patient declined work note.. - Differential Dx/Diagnosis Provider Diagnoses: right radial head impacted fracture Discharge - Sign-Out/Discharge Documenting (check all that apply): Patient Departure All imaging exams completed and their final reports reviewed: Yes - Discharge Plan Condition: Stable Disposition: HOME Prescriptions: Hydrocodone/Acetaminophen [Hydrocodone-Acetamin 5-325 mg] 12 each PO Q6HR PRN # 15 tablet MDD 8 PRN Reason: Severe Pain Patient Education Materials: Wrist Fracture in Adults (ED) Referrals: Poncho Torres MD [Primary Care Provider] - Ginger Mae MD [Medical Doctor] - As Soon As Possible (Call Saturday for an appointment early next week) Additional Instructions: - wear splint and sling until you are seen in follow-up by the orthopedic provider - Contact the orthopedic office on Saturday to schedule a follow-up appointment. Dr. Yuen is a partner with Dr. Mae- contact information provided - keep your arm elevated to help with swelling and pain - apply ice (wrapped in a towel) 20 minutes at a time, 2-3 times a day - Pain: Okay to alternate ibuprofen (Advil, Motrin) 600mg and acetaminophen product (Tylenol or Ames - 2 tablets per dose - 2 over the counter tylenol, 2 prescription Ames, 1 over the counter and 1 Ames) every 3 hours for pain or fever. Take with food. Do NOT take for more than 4-5 days. Ames is a narcotic - do not drive, operate machinery or drink alcohol while taking Ames - Billing Disposition and Condition Condition: STABLE Disposition: Home
== END 2018-03-21 17:25 | disposition home or self-care (01) ==
LOC: UCEAST 15:25
DX: S52.501A Unspecified fracture of the lower end of right radius, initial encounter for closed fracture (principal); W01.0XXA Fall on same level from slipping, tripping and stumbling without subsequent striking against object, initial encounter; Y93.01 Activity, walking, marching and hiking; Y92.9 Unspecified place or not applicable; Z88.3 Allergy status to other anti-infective agents; Z91.018 Allergy to other foods
CPT/HCPCS: 25605; 99213; G0463

== ENCOUNTER → 2018-03-31 10:50 | Day surgery (SDC) | payer BC ==
[~2018-03-31 10:50] MED LIST: Buffered Lidocaine 0.9% SYRIN* 5 ML/SYR SYRINGE INTRADERM ONE; Buffered Lidocaine 0.9% SYRIN* 5 ML/SYR SYRINGE ONE; Bupivacaine 0.25% SDV* 30 ML ONE; Dexamethasone IV* 4 MG/ML 1 ML (4 MG) IV SLOW PU ONE; Dexamethasone IV* 4 MG/ML 1 ML (4 MG) ONE; DiMENhydriNATE IV* 50 MG/ML VIAL IV PUSH PRN; Famotidine IV* 10 MG/ML 2 ML (20 mg) IV ONE; Famotidine IV* 10 MG/ML 2 ML (20 mg) ONE; Ketorolac INJ* 30 MG/ML 1 ML VIAL ONE; Lidocaine 2% PF * 5 ML VIAL ONE; Midazolam* 1 MG/ML 5 ML VIAL (5 MG) ONE; Naloxone* 0.4 MG/ML 1 ML VIAL IV PRN; Ondansetron INJ* 2 MG/ML VIAL IV PRN; Ondansetron INJ* 2 MG/ML VIAL ONE; Propofol* 10 MG/ML 20 ML BTL IV PUSH ONE; Scopolamine 1.5 mg* PATCH TRANSDERM PRN; ceFAZolin 2 GM PREMIX in ORs 2 GM/50 ML BAG IVPB ONE; fentaNYL* 50 MCG/ML 2 ML VIAL (100 MCG VIAL) IV PRN; fentaNYL* 50 MCG/ML 2 ML VIAL (100 MCG VIAL) ONE; fentaNYL* 50 MCG/ML 5 ML VIAL (250 MCG VIAL) ONE; oxyCODONE/Acetamin 5/325 MG* TAB ONE
[2018-03-31] MEDS: oxyCODONE/Acetamin 5/325 MG* TAB PO PRN ×2 (15:37→15:38)
[2018-03-31 16:25] VITALS: BP 119/66
--- NOTE | 2018-04-01 07:39 | RAD ---
CPT II Codes: G9500 INDICATION: Right wrist fracture TECHNIQUE: Intraoperative fluoroscopy was provided during right wrist ORIF. FINDINGS: 4 spot films depict anatomic alignment of a pulmonary distal right wrist plate and screw fixator.. Fluoroscopy time: 14 seconds IMPRESSION: As above.
--- NOTE | 2018-04-01 09:43 | OP ---
DATE OF OPERATION: 03/31/18 - [facility] DATE OF : 59 SURGEON: Janes Yuen MD [employer] MACHINE INSPECTOR: LAQUITA Groves. An assistant kitchen manager was needed for the entirety of the procedure to aid in positioning of the arm and retraction. ANESTHESIOLOGIST: Dr. Watemran. ANESTHESIA: General. PRE-OP DIAGNOSIS: Right displaced intraarticular, 3-fragment distal radius fracture. POST-OP DIAGNOSIS: Right displaced intraarticular, 3-fragment distal radius fracture. OPERATIVE PROCEDURE: Open reduction internal fixation of right intraarticular, 3-fragment distal radius fracture. INDICATIONS: Melony had a fall on 03/21/18. She fractured the right wrist; it was displaced; it is an intraarticular fracture. We had talked about treatment options. We had talked about risks and benefits. She had wanted to proceed with surgery. ESTIMATED BLOOD LOSS: 5 mL. COMPLICATIONS: None. FINDINGS: See above and below. DESCRIPTION OF PROCEDURE: Melony was seen in the preoperative holding area. The correct site, side and procedure were identified. We came back to the operating room where the arm was prepped and draped in the usual fashion. A time-out was performed. The arm was exsanguinated with the Esmarch and the tourniquet inflated to 250 mmHg. I then made a longitudinal incision over the distal FCR tendon. The tendon sheath was opened. The tendon was retracted ulnarly. The subsheath was opened. The pronator quadratus was released off its radial margin and T'd back transversely preserving the distal volar capsular ligaments. The brachioradialis was released. I had placed the arm in 10 pounds of traction using the Arthrex hand moreno and some free weights. I mobilized the fracture with a freer elevator. I then performed a reduction maneuver. I placed a baby Hohmann ulnarly to correct the translation. Everything at this point was looking good, so I brought in my Synthes variable angle distal radius plate and this was pinned into place. The alignment was confirmed fluoroscopically. I then placed one screw in the oblong hole proximally. I then came distal and I placed locking screws in the foremost distal holes of the plate. The radial styloid screw was a variable angle locking screw. The two proximal cortical screws were placed. At this point, all of the provisional fixation had been removed. Everything was looking good clinically, so I brought back in the mini C-arm and confirmed everything fluoroscopically. The alignment looked excellent. The plate was in the appropriate position. The alignment was anatomic. We, therefore, irrigated out the wound. The pronator was repaired with 3-0 Vicryl suture. Skin was closed with 4-0 Monocryl and Steri-Strips. The operative field was infiltrated with 0.25% Marcaine. The wounds were appropriately dressed and a short arm wrist splint was applied with dorsal and volar slabs of plaster. Tourniquet was deflated and the hand pinked up immediately. She was then taken to the recovery room in stable condition. [id number] #: [id number] AAMIR
== END | disposition home or self-care (01) ==
LOC: OR 10:50
PROVIDERS: ATTEND Orthopaedic Surgery Hand Surgery
DX: S52.571A Other intraarticular fracture of lower end of right radius, initial encounter for closed fracture (principal); Z85.3 Personal history of malignant neoplasm of breast; I97.2 Postmastectomy lymphedema syndrome
CPT/HCPCS: 76000; A9270-GY; C1713; C1776; J0690; J1100; J1885; J2250; J2405; J2704; J3010